=== PATIENT | male | born 1930 ===

== ENCOUNTER 2017-10-12 21:58 | Emergency (ER) | payer MEDICARE ==
[2017-10-12 22:11] VITALS: RESP 18; TEMP 98.1
[2017-10-12] MEDS ORDERED: SODIUM CHLORIDE 0.9% 1,000 ML IV STA (22:17)
[2017-10-12 22:35] LABS: Basophils % (A) 0 %; Eosinophils # (A) 0.1 k/uL (0-0.7); Eosinophils % (A) 1 %; HGB 15.4 gm/dL (13.0-17.5); Lymphocytes # (A) 1.2 k/uL (1.0-4.8); Lymphocytes % (A) 12 %; MCH 28.1 pg (25.0-35.0); MCHC 32.7 g/dL (31.0-37.0); MCV 85.8 fL (80.0-100.0); Monocytes # (A) 0.5 k/uL (0-1.0); Monocytes % (A) 5 %; Neutrophils # (A) 8.3 k/uL (1.3-7.7); Neutrophils % (A) 81 %; Platelet Count 166 k/uL (150-450); RBC 5.49 m/uL (4.30-5.90); WBC 10.1 k/uL (3.8-10.6)
--- NOTE | 2017-10-12 22:35 | ED ---
General Adult HPI - General Chief complaint: Weakness Stated complaint: hypertension,syncope Time Seen by Provider: 10/12/17 22:17 Source: patient, EMS, RN notes reviewed, old records reviewed Mode of arrival: EMS Limitations: language barrier - History of Present Illness Initial comments: This is an 87-year-old male to the ER for evaluation. He presents today for evaluation regarding not feeling well, weakness near fall. Patient denies injury from fall but had difficulty walking after his episode of weakness. Patient is unable to communicate history obtained through was able to translate. 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 She states right now he has no complaints and currently before Sandra no complaints no pain no chest pain or shortness of breath no abdominal pain no headache he has been acting feeling fine lately - Related Data Home Medications Medication Instructions Recorded Confirmed Doxazosin Mesylate [Cardura] 4 mg PO HS 03/16/14 10/12/17 Enalapril [Vasotec] 20 mg PO DAILY 03/16/14 10/12/17 Magnesium Oxide [Mag-Ox] 250 mg PO DAILY 10/12/17 10/12/17 Multivit-Min/FA/Lycopen/Lutein 1 tab PO DAILY 10/12/17 10/12/17 [Centrum Silver Men Tablet] Pantoprazole Sodium [Protonix] 40 mg PO HS 10/12/17 10/12/17 Allergies Allergy/AdvReac Type Severity Reaction Status Date / Time No Known Allergies Allergy Verified 10/12/17 22:16 Review of Systems ROS Statement: Those systems with pertinent positive or pertinent negative responses have been documented in the HPI. ROS Other: All systems not noted in ROS Statement are negative. Past Medical History Past Medical History: Hyperlipidemia, Hypertension, Prostate Disorder History of Any Multi-Drug Resistant Organisms: None Reported Past Surgical History: Hernia Repair Additional Past Surgical History / Comment(s): Hemorrhoid removal, plate/ screws left wrist. Past Psychological History: No Psychological Hx Reported Smoking Status: Former smoker Past Alcohol Use History: None Reported Past Drug Use History: None Reported General Exam Limitations: language barrier General appearance: alert, in no apparent distress Head exam: Present: atraumatic, normocephalic, normal inspection Eye exam: Present: normal appearance, PERRL, EOMI. Absent: scleral icterus, conjunctival injection, periorbital swelling ENT exam: Present: normal exam, mucous membranes moist Neck exam: Present: normal inspection. Absent: tenderness, meningismus, lymphadenopathy Respiratory exam: Present: normal lung sounds bilaterally. Absent: respiratory distress, wheezes, rales, rhonchi, stridor Cardiovascular Exam: Present: regular rate, normal rhythm, normal heart sounds. Absent: systolic murmur, diastolic murmur, rubs, gallop, clicks GI/Abdominal exam: Present: soft, normal bowel sounds. Absent: distended, tenderness, guarding, rebound, rigid Extremities exam: Present: normal inspection, full ROM, normal capillary refill. Absent: tenderness, pedal edema, joint swelling, calf tenderness Back exam: Present: normal inspection Neurological exam: Present: alert, oriented X3, CN II-XII intact Psychiatric exam: Present: normal affect, normal mood Skin exam: Present: warm, dry, intact, normal color. Absent: rash Course Vital Signs 10/12/17 10/12/17 10/13/17 22:02 23:13 00:25 Temperature 98.1 F Pulse Rate 81 79 76 Respiratory 18 18 18 Rate Blood Pressure 183/107 172/97 186/92 O2 Sat by Pulse 97 98 98 Oximetry - Reevaluation(s) Reevaluation #1: 10/13/17 00:51 Patient not asking a requiring any treatment, no has no pain Reevaluation #2: 10/13/17 02:51 Patient does have significant fecal bolus, patient given enema, patient able to manually disimpact himself, EKG Findings - EKG Comments: EKG Findings:: EKG shows sinus rhythm rate of 88, pO2 40, QRS 76, QTc 423 Medical Decision Making - Medical Decision Making 80 formality ER for evaluation regarding weakness, patient have significant constipation, will be treated appropriately. Patient having adequate bowel movement strong able to ambulate. Patient can be discharged - Lab Data Result diagrams: 10/12/17 22:16 10/12/17 22:16 Lab Results 10/12/17 10/12/17 10/12/17 Range/Units 22:16 22:16 22:16 WBC 10.1 (3.8-10.6) k/uL RBC 5.49 (4.30-5.90) m/uL Hgb 15.4 (13.0-17.5) gm/dL Hct 47.0 (39.0-53.0) % MCV 85.8 (80.0-100.0) fL MCH 28.1 (25.0-35.0) pg MCHC 32.7 (31.0-37.0) g/dL RDW 14.0 (11.5-15.5) % Plt Count 166 (150-450) k/uL Neutrophils % 81 % Lymphocytes % 12 % Monocytes % 5 % Eosinophils % 1 % Basophils % 0 % Neutrophils # 8.3 H (1.3-7.7) k/uL Lymphocytes # 1.2 (1.0-4.8) k/uL Monocytes # 0.5 (0-1.0) k/uL Eosinophils # 0.1 (0-0.7) k/uL Basophils # 0.0 (0-0.2) k/uL PT (9.0-12.0) sec INR (<1.2) APTT (22.0-30.0) sec Sodium 140 (137-145) mmol/L Potassium 3.9 (3.5-5.1) mmol/L Chloride 106 (98-107) mmol/L Carbon Dioxide 26 (22-30) mmol/L Anion Gap 8 mmol/L BUN 16 (9-20) mg/dL Creatinine 0.90 (0.66-1.25) mg/dL Est GFR (CKD-EPI)AfAm >90 (>60 ml/min/1.73 sqM) Est GFR (CKD-EPI)NonAf 78 (>60 ml/min/1.73 sqM) Glucose 107 H (74-99) mg/dL Calcium 10.0 (8.4-10.2) mg/dL Phosphorus 2.5 (2.5-4.5) mg/dL Magnesium 2.2 (1.6-2.3) mg/dL Total Bilirubin 0.7 (0.2-1.3) mg/dL AST 21 (17-59) U/L ALT 25 (21-72) U/L Alkaline Phosphatase 86 (38-126) U/L Total Creatine Kinase 130 (55-170) U/L CK-MB (CK-2) 2.0 (0.0-2.4) ng/mL CK-MB (CK-2) Rel Index 1.5 Troponin I <0.012 (0.000-0.034) ng/mL Total Protein 6.7 (6.3-8.2) g/dL Albumin 3.9 (3.5-5.0) g/dL TSH 0.508 (0.465-4.680) mIU/L Urine Color Urine Appearance (Clear) Urine pH (5.0-8.0) Ur Specific [place] (1.001-1.035) Urine Protein (Negative) Urine Glucose (UA) (Negative) Urine Ketones (Negative) Urine Blood (Negative) Urine Nitrite (Negative) Urine Bilirubin (Negative) Urine Urobilinogen (<2.0) mg/dL Ur Leukocyte Esterase (Negative) Urine RBC (0-5) /hpf Urine WBC (0-5) /hpf Amorphous Sediment (None) /hpf Urine Bacteria (None) /hpf Urine Mucus (None) /hpf 10/12/17 10/12/17 Range/Units 22:16 23:06 WBC (3.8-10.6) k/uL RBC (4.30-5.90) m/uL Hgb (13.0-17.5) gm/dL Hct (39.0-53.0) % MCV (80.0-100.0) fL MCH (25.0-35.0) pg MCHC (31.0-37.0) g/dL RDW (11.5-15.5) % Plt Count (150-450) k/uL Neutrophils % % Lymphocytes % % Monocytes % % Eosinophils % % Basophils % % Neutrophils # (1.3-7.7) k/uL Lymphocytes # (1.0-4.8) k/uL Monocytes # (0-1.0) k/uL Eosinophils # (0-0.7) k/uL Basophils # (0-0.2) k/uL PT 10.6 (9.0-12.0) sec INR 1.1 (<1.2) APTT 24.6 (22.0-30.0) sec Sodium (137-145) mmol/L Potassium (3.5-5.1) mmol/L Chloride (98-107) mmol/L Carbon Dioxide (22-30) mmol/L Anion Gap mmol/L BUN (9-20) mg/dL Creatinine (0.66-1.25) mg/dL Est GFR (CKD-EPI)AfAm (>60 ml/min/1.73 sqM) Est GFR (CKD-EPI)NonAf (>60 ml/min/1.73 sqM) Glucose (74-99) mg/dL Calcium (8.4-10.2) mg/dL Phosphorus (2.5-4.5) mg/dL Magnesium (1.6-2.3) mg/dL Total Bilirubin (0.2-1.3) mg/dL AST (17-59) U/L ALT (21-72) U/L Alkaline Phosphatase (38-126) U/L Total Creatine Kinase (55-170) U/L CK-MB (CK-2) (0.0-2.4) ng/mL CK-MB (CK-2) Rel Index Troponin I (0.000-0.034) ng/mL Total Protein (6.3-8.2) g/dL Albumin (3.5-5.0) g/dL TSH (0.465-4.680) mIU/L Urine Color Yellow Urine Appearance Cloudy (Clear) Urine pH 7.0 (5.0-8.0) Ur Specific [place] 1.013 (1.001-1.035) Urine Protein Trace H (Negative) Urine Glucose (UA) Negative (Negative) Urine Ketones Negative (Negative) Urine Blood Negative (Negative) Urine Nitrite Negative (Negative) Urine Bilirubin Negative (Negative) Urine Urobilinogen <2.0 (<2.0) mg/dL Ur Leukocyte Esterase Negative (Negative) Urine RBC 1 (0-5) /hpf Urine WBC <1 (0-5) /hpf Amorphous Sediment Rare H (None) /hpf Urine Bacteria Rare H (None) /hpf Urine Mucus Occasional H (None) /hpf - Radiology Data Radiology results: report reviewed (CT brain C-spine CT chest and pelvis positive for fecal impaction), image reviewed Disposition Clinical Impression: Constipation, Weakness Disposition: HOME SELF-CARE Condition: Good Instructions: Constipation (ED) Referrals: Rodrigo Foley MD [Primary Care Provider] - 1-2 days
[2017-10-12 22:38] LABS: INR 1.1 (<1.2); Partial Thromboplastin Time 24.6 sec (22.0-30.0); Prothrombin Time 10.6 sec (9.0-12.0)
--- NOTE | 2017-10-12 22:45 | XR ---
EXAMINATION TYPE: XR chest 2V DATE OF EXAM: 10/12/2017 COMPARISON: 03/16/2014 HISTORY: Weakness TECHNIQUE: Frontal and lateral views of the chest are obtained. FINDINGS: There is no heart failure nor confluent pneumonic infiltrate. Thoracic aorta is atheroscle rotic and tortuous. 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 There is slight blunting of the costop hrenic angles. Bony thorax appears intact. 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 No heart fa ilure. Mild pleural reaction at the posterior lung bases is slightly increased.
[2017-10-12 22:56] LABS: ALT 25 U/L (21-72); AST 21 U/L (17-59); Albumin 3.9 g/dL (3.5-5.0); Alkaline Phosphatase 86 U/L (38-126); Anion Gap 8 mmol/L; Blood Urea Nitrogen 16 mg/dL (9-20); Carbon Dioxide 26 mmol/L (22-30); Chloride 106 mmol/L (98-107); Glucose 107 mg/dL (74-99); Magnesium 2.2 mg/dL (1.6-2.3); Phosphorus 2.5 mg/dL (2.5-4.5); Potassium 3.9 mmol/L (3.5-5.1); Sodium 140 mmol/L (137-145); Total Bilirubin 0.7 mg/dL (0.2-1.3); Total Protein 6.7 g/dL (6.3-8.2)
[2017-10-12 23:04] LABS: Creatine Kinase 130 U/L (55-170)
[2017-10-12 23:15] LABS: Troponin I <0.012 ng/mL (0.000-0.034)
[2017-10-12 23:21] LABS: Amorphous Sediment,Urine Rare /hpf; Appearance,Urine Cloudy (Clear); Bacteria,Urine Rare /hpf; Bilirubin,Urine Negative (Negative); Blood,Urine Negative (Negative); Color,Urine Yellow; Glucose,Urine (UA) Negative (Negative); Ketones,Urine Negative (Negative); Leukocyte Esterase,Urine Negative (Negative); Mucus,Urine Occasional /hpf; Nitrite,Urine Negative (Negative); Protein,Urine Trace (Negative); RBC,Urine 1 /hpf (0-5); Specific Gravity,Urine 1.013 (1.001-1.035); Urobilinogen,Urine <2.0 mg/dL (<2.0); WBC,Urine <1 /hpf (0-5)
[2017-10-12] MEDS ORDERED: RX INFO: IV CONTRAST WAS GIVEN 1 EACH MISC MISCELLANE PRN (23:41)
--- NOTE | 2017-10-13 00:53 | CT ---
EXAMINATION TYPE: CT brain ayo wo con DATE OF EXAM: 10/13/2017 COMPARISON: 06/15/2010 HISTORY: Fall headache. Neck pain. CT DLP: 1487.60 mGycm Automated exposure control for dose reduction was used. TECHNIQUE: CT scan of the head and cervical spine are performed without contrast. FINDINGS: There is cerebral cortical atrophy. There is no mass effect nor midline shift. There is n o sign of intracranial hemorrhage. The calvarium appears intact. There is hypodensity in the perivent ricular white matter. There is a 3 mm retrolisthesis at C5-6. There is spurring of endplates at C5-6 C6-7. There is multile ольга hypertrophic cervical facet arthropathy. The skull base is intact. There is bony spinal stenosis at C5-6 C6-7 due to the spur formation and facet arthropathy. Spinal canal measures 4 to 5 mm. IMPRESSION: Cerebral atrophy and chronic small vessel ischemia that has progressed compared to old exam. Spondylotic changes in the cervical spine with moderately severe spinal stenosis at C5-6. No fracture . Spinal stenosis is worse than old exam.
--- NOTE | 2017-10-13 00:57 | CT ---
EXAMINATION TYPE: CT angio chest DATE OF EXAM: 10/13/2017 12:29 AM COMPARISON: NONE HISTORY: Fall, Weakness, R/O PE chest pain CT DLP: 991.50 mGycm Automated exposure control for dose reduction was used. CONTRAST: CTA scan of the thorax is performed with IV Contrast, patient injected with 100 mL of Omnipaque 350, pulmonary embolism protocol. There are 3-D post processed images.. FINDINGS: There is some pleural infiltrate and atelectasis at the right posterior lung base. There is small rig ht pleural effusion. Heart is enlarged. There is mild aneurysm of the thoracic aorta measures up to 4 cm. There is no evidence of dissection. There are large central pulmonary arteries. I see no filling defects in the pulmonary arteries. There is no mediastinal adenopathy. There are no hilar masses. There is no evidence of a pulmonary mass. T here are spondylotic changes in the thoracic spine. Heart is enlarged. There is no pericardial effusi on. IMPRESSION: NO EVIDENCE OF PULMONARY EMBOLISM. SMALL RIGHT PLEURAL EFFUSION AND MILD INFILTRATE AND ATELECTASIS A T THE RIGHT LUNG BASE. SMALL LEFT PLEURAL EFFUSION. MILD ANEURYSM OF THE THORACIC AORTA. CHANGES OF P ULMONARY HYPERTENSION WITH LARGE PULMONARY ARTERIES.
--- NOTE | 2017-10-13 01:08 | CT ---
EXAMINATION TYPE: CT abdomen pelvis w con DATE OF EXAM: 10/13/2017 COMPARISON: NONE HISTORY: Fall, Weakness CT DLP: 991.50 mGycm Automated exposure control for dose reduction was used. TECHNIQUE: Helical acquisition of images was performed from the lung bases through the pelvis. CONTRAST: Performed without Oral Contrast and with IV Contrast, patient injected with 100 mL of Omnipaque 350. FINDINGS: There are small bilateral pleural effusions. There is mild infiltrate and atelectasis at the posterio r lung bases. Heart is enlarged. Liver and spleen appear normal. Bile ducts are not dilated. There is no evidence of a pancreatic mass . Gallbladder appears normal. There is no adrenal mass. There is a 2 cm cyst on the upper pole left kidney. There is no hydronephro sis. Ureters are not dilated. There is normal contrast opacification of the kidneys. There is no retr operitoneal adenopathy. There is retained fecal material throughout the colon. There is enlarged rect um with fecal material. This measures 7.2 cm in diameter. Bladder distends smoothly. There is no asci gali. Appendix appears normal. IMPRESSION: MILD INFILTRATES AT THE LUNG BASES WITH BILATERAL PLEURAL EFFUSIONS. CARDIOMEGALY. ATHEROSCLEROTIC VA SCULAR DISEASE. RECTAL FECAL IMPACTION. NO EVIDENCE OF RENAL MASS OR OBSTRUCTION. NORMAL APPENDIX. 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 THERE IS MILD RETROLISTHESIS AT L3-4. THERE IS A MILD SPONDYLOLISTHESIS AT L4-5. NO COMPRESSION FRACTURE.
[2017-10-13] MEDS ORDERED: SENNOSIDES-DOCUSATE SODIUM 1 EACH TAB PO STA (01:11)
[2017-10-13] MEDS ORDERED: MAGNESIUM CITRATE 296 ML BOTTLE PO ONE (01:11)
[2017-10-13 04:05] VITALS: BP 152/82; PULSE 92
== END 2017-10-13 03:59 | disposition home or self-care (01) ==
LOC: EC 21:58
DX: R53.1 Weakness (principal); K59.00 Constipation, unspecified; R55 Syncope and collapse; I10 Essential (primary) hypertension; Z87.891 Personal history of nicotine dependence
CPT/HCPCS: 36415; 93005; 80053; 82550; 82553; 83735; 84100; 84443; 84484; 85025; 85610; 85730; 81001; 87086; 71046; 72125; 70450; 71275; 74177; 99285; 96360; 96361; Q9967

== ENCOUNTER 2017-10-14 10:00 | Inpatient (IN) | payer MEDICARE ==
[2017-10-14] MEDS ORDERED: SODIUM CHLORIDE 0.9% 500 ML IV ONE (10:40)
--- NOTE | 2017-10-14 10:55 | ED ---
General Adult HPI - General Chief complaint: Abdominal Pain Stated complaint: Altered Mental Status Time Seen by Provider: 10/14/17 10:02 Source: EMS, RN notes reviewed Mode of arrival: EMS Limitations: physical limitation - History of Present Illness Initial comments: 86-year-old male presenting with abdominal pain and altered mental status. Patient does have baseline dementia, according to his he has had left- sided weakness and worsening confusion. He did sleep with his abdomen over a couch according to EMS. He was complaining of abdominal pain. He is unable to quantify the exact reason why 0 but does state he is having abdominal pain. Patient denies headache or vision changes. Denies any other pain complaints. Although I'm uncertain how reliable this history is, given the patient's mental status. According to his the symptoms in his left arm and left leg have been present since this morning 4am. she does not believe these were present yesterday evening although she is uncertain of the exact time course. - Related Data Home Medications Medication Instructions Recorded Confirmed Doxazosin Mesylate [Cardura] 4 mg PO HS 03/16/14 10/14/17 Enalapril [Vasotec] 20 mg PO DAILY 03/16/14 10/14/17 Magnesium Oxide [Mag-Ox] 250 mg PO DAILY 10/12/17 10/14/17 Multivit-Min/FA/Lycopen/Lutein 1 tab PO DAILY 10/12/17 10/14/17 [Centrum Silver Men Tablet] Pantoprazole Sodium [Protonix] 40 mg PO HS 10/12/17 10/14/17 Allergies Allergy/AdvReac Type Severity Reaction Status Date / Time No Known Allergies Allergy Verified 10/14/17 10:23 Review of Systems ROS Statement: Those systems with pertinent positive or pertinent negative responses have been documented in the HPI. ROS Other: All systems not noted in ROS Statement are negative. Past Medical History Past Medical History: Hyperlipidemia, Hypertension, Prostate Disorder History of Any Multi-Drug Resistant Organisms: None Reported Past Surgical History: Hernia Repair Additional Past Surgical History / Comment(s): Hemorrhoid removal, plate/ screws left wrist. Past Psychological History: No Psychological Hx Reported Smoking Status: Former smoker Past Alcohol Use History: None Reported Past Drug Use History: None Reported General Exam Limitations: physical limitation General appearance: alert, in no apparent distress Head exam: Present: atraumatic, normocephalic Eye exam: Present: normal appearance, PERRL ENT exam: Present: mucous membranes dry Neck exam: Present: normal inspection. Absent: tenderness, meningismus Respiratory exam: Present: rhonchi. Absent: respiratory distress Cardiovascular Exam: Present: normal rhythm, tachycardia GI/Abdominal exam: Present: soft, distended, tenderness (Generalized tenderness) Extremities exam: Present: normal inspection, normal capillary refill Neurological exam: Present: motor sensory deficit (Left upper extremity and left lower extremity flaccid paralysis). Absent: oriented X3 Skin exam: Present: warm, dry. Absent: cyanosis, diaphoretic Course Vital Signs 10/14/17 10/14/17 10/14/17 10:01 11:46 14:00 Temperature 98.0 F 97.5 F L Pulse Rate 103 H 82 88 Respiratory 24 16 16 Rate Blood Pressure 122/78 159/86 167/89 O2 Sat by Pulse 94 L 98 97 Oximetry EKG Findings - EKG Comments: EKG Findings:: EKG shows sinus rhythm with first-degree AV block, low voltage QRS, no ST segment elevation, rate of 96, W[place] interval 230, QS duration 68, QTC 409 Medical Decision Making - Medical Decision Making 86-year-old male presenting by EMS after being found down at home. According to patient's he had a fall earlier in the evening. She noted left-sided weakness at approximately 4 AM that the patient woke with. Weakness has been localized to the left upper and lower extremity. Patient is outside the TPA window at the time of arrival. CT head is obtained, negative for acute intracranial pathology. Case is discussed with the patient's primary care physician or does know him well, recommended CT angiography although patient is outside of TPA window, there may be endovascular intervention available. CT angiography is obtained, this is negative for occlusion. Patient has been given aspirin in the emergency department. He will be admitted for further evaluation and treatment. - Lab Data Result diagrams: 10/14/17 10:15 10/14/17 10:15 Lab Results 10/14/17 10/14/17 10/14/17 Range/Units 10:15 10:15 10:15 WBC 12.2 H (3.8-10.6) k/uL RBC 5.52 (4.30-5.90) m/uL Hgb 15.8 (13.0-17.5) gm/dL Hct 47.6 (39.0-53.0) % MCV 86.3 (80.0-100.0) fL MCH 28.5 (25.0-35.0) pg MCHC 33.1 (31.0-37.0) g/dL RDW 14.2 (11.5-15.5) % Plt Count 148 L (150-450) k/uL Neutrophils % 91 % Lymphocytes % 4 % Monocytes % 5 % Eosinophils % 0 % Basophils % 0 % Neutrophils # 11.1 H (1.3-7.7) k/uL Lymphocytes # 0.4 L (1.0-4.8) k/uL Monocytes # 0.6 (0-1.0) k/uL Eosinophils # 0.0 (0-0.7) k/uL Basophils # 0.0 (0-0.2) k/uL PT 10.8 (9.0-12.0) sec INR 1.1 (<1.2) APTT 24.8 (22.0-30.0) sec Sodium 140 (137-145) mmol/L Potassium 5.0 (3.5-5.1) mmol/L Chloride 106 (98-107) mmol/L Carbon Dioxide 23 (22-30) mmol/L Anion Gap 11 mmol/L BUN 20 (9-20) mg/dL Creatinine 0.94 (0.66-1.25) mg/dL Est GFR (CKD-EPI)AfAm 86 (>60 ml/min/1.73 sqM) Est GFR (CKD-EPI)NonAf 75 (>60 ml/min/1.73 sqM) Glucose 130 H (74-99) mg/dL Plasma Lactic Acid Jose Raul (0.7-2.0) mmol/L Calcium 9.9 (8.4-10.2) mg/dL Total Bilirubin 1.2 (0.2-1.3) mg/dL AST 64 H (17-59) U/L ALT 40 (21-72) U/L Alkaline Phosphatase 79 (38-126) U/L Troponin I (0.000-0.034) ng/mL Total Protein 6.9 (6.3-8.2) g/dL Albumin 4.0 (3.5-5.0) g/dL Amylase 71 (30-110) U/L Lipase 37 (23-300) U/L Urine Color Urine Appearance (Clear) Urine pH (5.0-8.0) Ur Specific [place] (1.001-1.035) Urine Protein (Negative) Urine Glucose (UA) (Negative) Urine Ketones (Negative) Urine Blood (Negative) Urine Nitrite (Negative) Urine Bilirubin (Negative) Urine Urobilinogen (<2.0) mg/dL Ur Leukocyte Esterase (Negative) Urine RBC (0-5) /hpf Urine WBC (0-5) /hpf Ur Renal Epithelial Cell (0) /hpf Urine Bacteria (None) /hpf Hyaline Casts (0-2) /lpf Urine Mucus (None) /hpf Urine Sperm (None) /hpf 10/14/17 10/14/17 10/14/17 Range/Units 10:15 10:50 11:00 WBC (3.8-10.6) k/uL RBC (4.30-5.90) m/uL Hgb (13.0-17.5) gm/dL Hct (39.0-53.0) % MCV (80.0-100.0) fL MCH (25.0-35.0) pg MCHC (31.0-37.0) g/dL RDW (11.5-15.5) % Plt Count (150-450) k/uL Neutrophils % % Lymphocytes % % Monocytes % % Eosinophils % % Basophils % % Neutrophils # (1.3-7.7) k/uL Lymphocytes # (1.0-4.8) k/uL Monocytes # (0-1.0) k/uL Eosinophils # (0-0.7) k/uL Basophils # (0-0.2) k/uL PT (9.0-12.0) sec INR (<1.2) APTT (22.0-30.0) sec Sodium (137-145) mmol/L Potassium (3.5-5.1) mmol/L Chloride (98-107) mmol/L Carbon Dioxide (22-30) mmol/L Anion Gap mmol/L BUN (9-20) mg/dL Creatinine (0.66-1.25) mg/dL Est GFR (CKD-EPI)AfAm (>60 ml/min/1.73 sqM) Est GFR (CKD-EPI)NonAf (>60 ml/min/1.73 sqM) Glucose (74-99) mg/dL Plasma Lactic Acid Jose Raul 1.8 (0.7-2.0) mmol/L Calcium (8.4-10.2) mg/dL Total Bilirubin (0.2-1.3) mg/dL AST (17-59) U/L ALT (21-72) U/L Alkaline Phosphatase (38-126) U/L Troponin I 0.018 (0.000-0.034) ng/mL Total Protein (6.3-8.2) g/dL Albumin (3.5-5.0) g/dL Amylase (30-110) U/L Lipase (23-300) U/L Urine Color [place] Urine Appearance Clear (Clear) Urine pH 6.0 (5.0-8.0) Ur Specific [place] 1.036 H (1.001-1.035) Urine Protein 2+ H (Negative) Urine Glucose (UA) Trace H (Negative) Urine Ketones 1+ H (Negative) Urine Blood Moderate H (Negative) Urine Nitrite Negative (Negative) Urine Bilirubin 1+ H (Negative) Urine Urobilinogen 2.0 (<2.0) mg/dL Ur Leukocyte Esterase Negative (Negative) Urine RBC 2 (0-5) /hpf Urine WBC 1 (0-5) /hpf Ur Renal Epithelial Cell <1 (0) /hpf Urine Bacteria Rare H (None) /hpf Hyaline Casts 4 H (0-2) /lpf Urine Mucus Few H (None) /hpf Urine Sperm Rare (None) /hpf Critical Care Time Critical Care Time: Yes Total Critical Care Time: 35 Disposition Clinical Impression: CVA (cerebral vascular accident) Disposition: ADMITTED IP TO THIS [facility] Condition: Stable Referrals: Rodrigo Foley MD [Primary Care Provider] - 1-2 days Decision to Admit Reason: Admit from EC Decision Date: 10/14/17 Decision Time: 12:30
[2017-10-14 10:58] LABS: Basophils % (A) 0 %; Eosinophils % (A) 0 %; HCT 47.6 % (39.0-53.0); HGB 15.8 gm/dL (13.0-17.5); Lymphocytes # (A) 0.4 k/uL (1.0-4.8); Lymphocytes % (A) 4 %; MCH 28.5 pg (25.0-35.0); MCHC 33.1 g/dL (31.0-37.0); MCV 86.3 fL (80.0-100.0); Mean Platelet Volume 7.7; Monocytes # (A) 0.6 k/uL (0-1.0); Monocytes % (A) 5 %; Neutrophils # (A) 11.1 k/uL (1.3-7.7); Neutrophils % (A) 91 %; Platelet Count 148 k/uL (150-450); RBC 5.52 m/uL (4.30-5.90); RDW 14.2 % (11.5-15.5); WBC 12.2 k/uL (3.8-10.6)
[2017-10-14 11:22] LABS: Partial Thromboplastin Time 24.8 sec (22.0-30.0)
[2017-10-14 11:28] LABS: Calcium 9.9 mg/dL (8.4-10.2); Total Bilirubin 1.2 mg/dL (0.2-1.3)
[2017-10-14 11:31] LABS: Total Protein 6.9 g/dL (6.3-8.2)
[2017-10-14 11:32] LABS: INR 1.1 (<1.2); Prothrombin Time 10.8 sec (9.0-12.0)
[2017-10-14 11:34] LABS: Appearance,Urine Clear (Clear); Bacteria,Urine Rare /hpf; Bilirubin,Urine 1+ (Negative); Blood,Urine Moderate (Negative); Color,Urine Orange; Glucose,Urine (UA) Trace (Negative); Hyaline Casts,Urine 4 /lpf (0-2); Ketones,Urine 1+ (Negative); Leukocyte Esterase,Urine Negative (Negative); Mucus,Urine Few /hpf; Nitrite,Urine Negative (Negative); Protein,Urine 2+ (Negative); RBC,Urine 2 /hpf (0-5); Renal Epithelial Cells,Urine <1 /hpf (0); Specific Gravity,Urine 1.036 (1.001-1.035); Sperm,Urine Rare /hpf; WBC,Urine 1 /hpf (0-5)
--- NOTE | 2017-10-14 11:37 | CT ---
EXAMINATION TYPE: CT brain ayo acevedo DATE OF EXAM: 10/14/2017 COMPARISON: 10/12/2017 HISTORY: recent fall, not responding, not using Lt side CT DLP: [address] of the brain was performed. The ventricles, basal cisterns and sulci overlying the cerebral convexities demonstrate moderate enla rgement. There is no evidence for intracranial hemorrhage or sulcal effacement. There is decreased attenuatio n about the periventricular white matter and deep white matter of both cerebral hemispheres, compatib le with chronic small vessel ischemia. No mass effects are seen. If symptoms persist consider MRI. Osseous calvarium is intact. IMPRESSION: 1. Age related atrophic and chronic small vessel ischemic change without acute intracranial process seen at this time. CT Cervical Spine: Unenhanced CT of the cervical spine was performed with bone and soft tissue window settings submitted . Coronal and sagittal reconstruction is obtained. There is normal alignment and prevertebral soft tissues. No evidence for acute cervical fracture . Scattered degenerative disc disease and spondylosis. Biapical scarring. IMPRESSION: 1. No evidence for acute fracture or subluxation of the cervical spine.
--- NOTE | 2017-10-14 11:50 | CT ---
EXAMINATION TYPE: CT abdomen pelvis wo con DATE OF EXAM: 10/14/2017 COMPARISON: 10/13/2010 HISTORY: constipation CT DLP: 911 mGycm Examination of the solid and hollow viscera is limited given the lack of contrast. FINDINGS: LUNG BASES: No evidence for nodule. No evidence for infiltrate. Trace pleural effusions noted. Mild c ompressive atelectasis at the lung bases. Cardiomegaly. LIVER/GB: Vicarious excretion of contrast within the gallbladder from recent CT examination. The gall bladder is unremarkable. No space-occupying hepatic lesion. PANCREAS: No pancreatic mass identified. No inflammatory process seen. SPLEEN: No evidence for splenomegaly. No intrasplenic lesions seen. ADRENALS: No adrenal nodules identified. No evidence for thickening. KIDNEYS: No evidence for solid renal mass. Hypoattenuating lesion left kidney likely reflects a cyst. No nephrolithiasis. No hydronephrosis. BOWEL: Appendix has a normal appearance. No evidence of bowel obstruction. No inflammatory process. N o evidence for pneumoperitoneum. Lymph nodes: No evidence for adenopathy greater than 1 cm. Abdominal aorta: Atheromatous changes seen. No evidence for aneurysm. Genital organs: No significant abnormality. Other: No significant abnormality. IMPRESSION: 1. No acute intra-abdominal or intrapelvic process identified. Overall stable examination relative to prior study. Fecal impaction is improved.
--- NOTE | 2017-10-14 12:26 | XR ---
EXAMINATION TYPE: XR chest 1V portable DATE OF EXAM: 10/14/2017 COMPARISON: 10/12/2017 HISTORY: Shortness of breath TECHNIQUE: Frontal and lateral views of the chest are obtained. FINDINGS: Scattered senescent parenchymal changes noted. Hyperinflation compatible with COPD. No evidence for infiltrate. No evidence for atelectasis. Heart size is stable. Mediastinal structures are stable and grossly unremarkable. No evidence for hilar prominence. Degenerative changes dorsal spine. IMPRESSION: 1. No evidence for acute pulmonary disease.
[2017-10-14] MEDS ORDERED: ASPIRIN 325 MG TAB PO STA (12:43)
[2017-10-14] MEDS ORDERED: RX INFO: IV CONTRAST WAS GIVEN 1 EACH MISC MISCELLANE PRN (14:01)
--- NOTE | 2017-10-14 15:11 | CT ---
EXAMINATION TYPE: CT angio head neck DATE OF EXAM: 10/14/2017 COMPARISON: NONE HISTORY: altered mental status CT DLP: 469 mGycm CONTRAST: Performed with IV Contrast, patient injected with 65 mL of Omnipaque 350. Combination Contrast CTA cervical carotids and [place] CTA cervical carotids with 3-D recons truction Contrast CTA of the cervical carotids was performed 3-D reconstruction imaging obtained at a separate workstation. Right carotid system: Mild plaque is seen of the right common carotid artery. There is mild plaque a lso noted at the carotid bulb and proximal ICA. No significant diameter reduction. ECA is patent. Right vertebral artery appears unremarkable. Left carotid system: Mild plaque is seen of the left common carotid artery. There is mild plaque als o noted at the carotid bulb and proximal ICA. No significant diameter reduction. ECA is patent. Lef t vertebral artery appears unremarkable. IMPRESSION: 1. No significant diameter reduction to account for the patient's symptoms. CTA [place] with 3-D reconstruction Contrast CTA of the [place] was performed 3-D reconstruction imaging obtained at a separate workstation. Vertebrobasilar system as well as intracranial portions of the internal carotid arteries and their [place] tributaries are patent. I do not see evidence for sizable aneurysm or vascular malformation. Pl ease note MRI provides greater sensitivity and specificity. Visualized brain appears grossly unremar kable. IMPRESSION: 1. No siginificant abnormality.
[2017-10-14 20:43] VITALS: BMI 22.9
[2017-10-14] MEDS: HEPARIN SODIUM,PORCINE 5,000 UNIT/ML 1 ML VIAL SQ SCH (21:25)
[2017-10-14] MEDS: DOXAZOSIN 4 MG TAB PO SCH (21:26)
[2017-10-14] MEDS: SODIUM CHLORIDE 0.9% 1,000 ML IV SCH (21:26)
[2017-10-15] MEDS: HEPARIN SODIUM,PORCINE 5,000 UNIT/ML 1 ML VIAL SQ SCH ×4 (00:29→22:59)
[2017-10-15 03:56] LABS: Cholesterol 159 mg/dL (<200); HDL Cholesterol 60 mg/dL (40-60); LDL Cholesterol,Calculated 88 mg/dL (0-99); Triglycerides 57 mg/dL (<150)
[2017-10-15] MEDS: SODIUM CHLORIDE 0.9% 1,000 ML IV SCH ×3 (08:18→21:15)
[2017-10-15] MEDS ORDERED: PANTOPRAZOLE 40 MG/10 ML VIAL IVP SCH (09:00)
--- NOTE | 2017-10-15 10:06 | P.CONS ---
History of Present Illness - Chief Complaint Gait disturbance - History of Present Illness I had the op to see patient for inpatient rehab consultation with regard to gait disturbance. He was admitted to [facility] October 14 acute onset left-sided weakness. Workup included CT of abdomen and pelvis which demonstrates improving fecal impaction. Chest x-ray negative. Angio-Seal CT negative. C- spine CT negative. Head CT with age-related atrophy only. PT, OT, OPTICAL LABORATORY MANAGER prescribed. Cardiac echo pending. Previous functional history as elicited from , as patient was getting cardiac echo: 86-year-old right-handed [place] male who is lives in one form with . Retired. does cooking, laundry, driving. Patient independent with sitdown shower. Cruising technique around the house and generally standard cane outside. May require roller walker, after eating. Dr. Foley is regular doctor. Family history of cancer in father and sisters. Review of Systems Review of systems: ENT: Denies sneezes or discharge. Eyes: Denies discharge or photophobia. Cardiac: Denies chest pain or palpitation. Pulmonary: Denies cough or shortness of breath. Gastrointestinal: Denies nausea, emesis, constipation, diarrhea. Genitourinary: Denies discharge or frequency. Musculoskeletal: Denies muscle or bone aches. Neurologic: Left-sided weakness and numbness. Endocrine: Denies shakes or sweats. Oncology: Denies cancers. Dermatologic: Denies rash, itching, pruritus. ALLERGY/immunology: Denies sneezes, rashes. Past Medical History Past Medical History: Hyperlipidemia, Hypertension, Prostate Disorder History of Any Multi-Drug Resistant Organisms: None Reported Past Surgical History: Hernia Repair Additional Past Surgical History / Comment(s): Hemorrhoid removal, plate/ screws left wrist. Past Anesthesia/Blood Transfusion Reactions: No Reported Reaction Past Psychological History: No Psychological Hx Reported Smoking Status: Former smoker Past Alcohol Use History: None Reported Past Drug Use History: None Reported - Past Family History Mother History Unknown: Yes Medications and Allergies Home Medications Medication Instructions Recorded Confirmed Type Doxazosin Mesylate [Cardura] 4 mg PO HS 03/16/14 10/14/17 History Enalapril [Vasotec] 20 mg PO DAILY 03/16/14 10/14/17 History Magnesium Oxide [Mag-Ox] 250 mg PO DAILY 10/12/17 10/14/17 History Multivit-Min/FA/Lycopen/Lutein 1 tab PO DAILY 10/12/17 10/14/17 History [Centrum Silver Men Tablet] Pantoprazole Sodium [Protonix] 40 mg PO HS 10/12/17 10/14/17 History Allergies Allergy/AdvReac Type Severity Reaction Status Date / Time No Known Allergies Allergy Verified 10/14/17 10:23 Physical Exam Vitals: Vital Signs Temp Pulse Pulse Resp BP BP Pulse Ox 10/15/17 08:00 97.7 F 77 16 179/90 97 10/15/17 04:00 97.3 F L 95 18 173/90 99 10/15/17 00:00 97.8 F 85 16 159/83 98 10/14/17 20:00 98.1 F 101 H 18 159/93 98 10/14/17 18:44 98 18 176/80 98 10/14/17 17:44 74 18 189/87 97 10/14/17 16:44 74 18 172/81 98 10/14/17 15:49 73 16 187/88 94 L 10/14/17 15:44 72 18 187/88 98 10/14/17 14:00 88 16 167/89 97 10/14/17 11:46 97.5 F L 82 16 159/86 98 Intake and Output 10/14/17 10/15/17 10/15/17 22:59 06:59 14:59 Intake Total 800 Balance 800 Intake: IV 800 Sodium Chloride 0.9% 1, 800 000 ml @ 100 mls/hr IV . Q10H [facility] Rx#:[id number] Other: Voiding Method Diaper Diaper Incontinent Incontinent # Voids 2 Weight 72.575 kg Skin: Mildly atrophic, intact. General: Medium build and comfortable appearance. Head: Normocephalic, atraumatic. Eyes: Symmetric. Pupils equal round. Ears: Symmetric. Hearing within normal limits. Mouth: Clear. Neck: Supple. Carotid without bruit. Cardiac: Regular rate and rhythm. Lungs: Clear anteriorly and posteriorly. Abdomen: Soft active nontender. Extremities: Normal tone. Neurological: Mental status: Alert, cooperative, pleasant. Cranial nerves: Symmetric facial tone and trapezius. Motor: Normal strength and isolation right arm. Right leg at best antigravity. Left arm in flexion synergy poor and left leg in extension synergy poor. Sensation: Intact throughout. DTRs: Symmetric and equal throughout. Mobility: Requires assistance for bed mobility. Results CBC & Chem 7: 10/14/17 10:15 10/14/17 10:15 Labs: Abnormal Lab Results - Last 24 Hours (Table) 10/14/17 10/14/17 10/14/17 Range/Units 10:15 10:15 11:00 WBC 12.2 H (3.8-10.6) k/uL Plt Count 148 L (150-450) k/uL Neutrophils # 11.1 H (1.3-7.7) k/uL Lymphocytes # 0.4 L (1.0-4.8) k/uL Glucose 130 H (74-99) mg/dL AST 64 H (17-59) U/L Ur Specific [place] 1.036 H (1.001-1.035) Urine Protein 2+ H (Negative) Urine Glucose (UA) Trace H (Negative) Urine Ketones 1+ H (Negative) Urine Blood Moderate H (Negative) Urine Bilirubin 1+ H (Negative) Urine Bacteria Rare H (None) /hpf Hyaline Casts 4 H (0-2) /lpf Urine Mucus Few H (None) /hpf Chest x-ray: report reviewed (Negative.) CT scan - abdomen: report reviewed (Abdomen and pelvis negative.) CT Scan - head: report reviewed (Age-related atrophy. C-spine negative. Angio CT negative.) Assessment and Plan (1) CVA (cerebral vascular accident) Current Visit: Yes Status: Acute Code(s): I63.9 - CEREBRAL INFARCTION, UNSPECIFIED SNOMED Code(s): 897431843 Plan: Impression: 1. Gait disturbance. 2. 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 3. Constipation. 4. Hypertension. 5. Dyslipidemia. 6. Prostate disorder. Comments and plan: At this time PT, OT, OPTICAL LABORATORY MANAGER prescribed. Patient also awaiting regular hospital bed. I will follow closely with yourself. Discussed possible inpatient rehab with patient and .
--- NOTE | 2017-10-15 12:02 | ECHOF ---
Referral Reason:cva MEASUREMENTS -------- HEIGHT: 177.8 cm WEIGHT: 72.6 kg BP: 166/88 RVIDd: 3.1 cm (< 3.3) IVSd: 1.0 cm (0.6 - 1.1) LVIDd: 4.2 cm (3.9 - 5.3) LVPWd: 1.0 cm (0.6 - 1.1) IVSs: 1.3 cm LVIDs: 2.5 cm LVPWs: 1.3 cm LAESV Index (A-L): 19.68 ml/m Ao Diam: 4.5 cm (2.0 - 3.7) AV Cusp: 2.2 cm (1.5 - 2.6) LA Diam: 2.9 cm (2.7 - 3.8) MV E Dion: 0.61 m/s MV DecT: 303 ms MV A Dion: 1.08 m/s MV E/A Ratio: 0.56 RAP: 5.00 mmHg RVSP: 15.12 mmHg FINDINGS -------- Sinus rhythm. This was a technically difficult study with suboptimal views. The left ventricular size is normal. Left ventricular wall thickness is normal. Overall left vent ricular systolic function is normal with, an EF between 55 - 60 %. The RV was not well visualized. Normal LA size by volume 22+/-6 ml/m2. The right atrium was not well visualized. 3ml of Lumason was utilized for enhancement of images. Aortic valve is trileaflet and is mildly thickened. Trace to mild aortic regurgitation. There is no evidence of aortic stenosis. The mitral valve leaflets are mildly thickened. There is trace to mild mitral regurgitation. Trace tricuspid regurgitation present. Right ventricular systolic pressure is normal at < 35 mmHg. There is no evidence of pulmonary hypertension. The pulmonic valve was not well visualized. The aortic root is dilated measuring 3.8cm. Normal inferior vena cava with normal inspiratory collapse consistent with estimated right atrial pre ssure of 5 mmHg. There is no pericardial effusion. CONCLUSIONS -------- 1. Sinus rhythm. 2. This was a technically difficult study with suboptimal views. 3. The left ventricular size is normal. 4. Left ventricular wall thickness is normal. 5. Overall left ventricular systolic function is normal with, an EF between 55 - 60 %. 6. The RV was not well visualized. 7. Normal LA size by volume 22+/-6 ml/m2. 8. The right atrium was not well visualized. 9. 3ml of Lumason was utilized for enhancement of images. 10. Aortic valve is trileaflet and is mildly thickened. 11. Trace to mild aortic regurgitation. 12. The mitral valve leaflets are mildly thickened. 13. There is trace to mild mitral regurgitation. 14. Trace tricuspid regurgitation present. 15. Right ventricular systolic pressure is normal at < 35 mmHg. 16. There is no evidence of pulmonary hypertension. 17. The pulmonic valve was not well visualized. 18. The aortic root is dilated measuring 3.8cm. 19. There is no pericardial effusion. MAIL HANDLER EQUIPMENT OPERATOR: Yonny Og RDCS
[2017-10-15] MEDS: ASPIRIN 325 MG TAB PO SCH (12:50)
--- NOTE | 2017-10-15 19:05 | HP ---
HISTORY AND PHYSICAL ATTENDING PHYSICIAN: Dr. Marcus Foley. CHIEF COMPLAINT: Left-sided weakness. HISTORY OF PRESENT ILLNESS: This 86-year-old gentleman was admitted to the hospital with weakness of the left side. The patient spouse said he had been up at about 1:00 in the night. At that time, the patient seemed to be okay. At 4:00 in the morning, the patient fell and the could not get him up. The patient was at the edge of a couch. The patient appeared to be weak on the left side; however, the patient's was not sure if this was relating to how he was lying. She called me in the morning around 10:00 to see what to do. The patient was referred to the emergency room in view of the weakness of the left side. The patient had actually fallen and had been seen in the emergency room about 2 days prior to that. CT scan had been done. The patient then had no clear infarct. The patient presents to the emergency room with this left-sided weakness, the weakness in the left arm and left leg. He seems to have more weakness in the left lower leg than the arm. At the time of my exam, the patient is awake, alert. He actually is eating his dinner. However, he has clear definite flaccidity of the left lower leg and some weakness of the left upper extremity. The patient denies any headaches, any facial weakness, any difficulty swallowing, any visual disturbances. The patient is on aspirin at home. The patient had been seen a few days ago because of frequency of urination. At that time, the urinalysis unremarkable. A culture was sent. Pending that, the patient was started on Cipro. The patient's Cipro was discontinued with the culture results coming back. The patient also had Cardura which had been increased to 4 mg b.i.d.; however, I talked to the yesterday. That was the day prior to admission and I told to go back on the Cardura 4 mg daily. Apparently, the patient was significantly constipated when seen in the emergency room. When I had seen him, the said that he was having some loose stools. Apparently it seems like the patient's stools were loose because of significant high constipation. After treatment in the emergency room, he had good bowel movements. The patient's urinary flow was improved. The patient has not mentioned about, denies any headaches. The patient in the ER did have CTA of the brain which did not show any significant changes. PAST MEDICAL HISTORY: Significant for hypertension for the past about 38 years. He has some nodules in his thyroid gland. His colonic diverticulosis is without complications and history of hyperlipidemia. No history of any lung disease, liver disease, kidney disease, ulcers, TB, hepatitis. No history of any rheumatic fever, myocardial infarction, CVA. Does have dementia. PAST SURGICAL HISTORY: Significant for perianal abscess surgery, [id number] and then hemorrhoid surgeries. He had a chest tube on the left side for hemopneumothorax following a fall and injury. He has had a previous left wrist ORIF. PERSONAL HISTORY: Had an occasional cigarette for about 6 years, then quit about 70 years ago. Alcohol: None. VACCINATIONS: Patient is up to date. ALLERGIES: None known. MEDICATIONS: Have included: 1. Vasotec 20 mg daily. 2. Cardura 4 mg daily. 3. Lipitor 10 mg daily. 4. Aspirin 81 mg daily. 5. He also takes B12. 6. Multivitamin. 7. Fish oil. SOCIAL HISTORY: Patient is , lives with spouse. The spouse is having difficulty taking care of him at home lately. FAMILY MEDICAL HISTORY: Father at age of 47. He had carcinoma of the lung. Mother at the age of 92. She had hypertension, CKD. A sister, 86, with a history of dementia, colon cancer and diabetes mellitus. A sister at 70, history of salivary gland cancer. A sister, 76, with a history of CA of the colon, hypertension. The patient has a daughter, 55, with hypertension. A son, 52, in adequate health. REVIEW OF SYSTEMS: NEURO: Denies any headaches, dizziness. No double vision, blurred vision. No symptoms of syncope or seizures. PSYCH: Mild dementia, cooperative. CARDIAC: Denies chest pain, angina, palpitation. RESPIRATORY: No shortness of breath, cough, hemoptysis. GI: No nausea, vomiting, abdominal pain, diarrhea. : No symptoms of dysuria, hematuria. Does have frequency and incontinence. EXTREMITIES: Denies pain, edema. CONSTITUTIONAL: No fever, chills. SKIN: No rash. PHYSICAL EXAMINATION: Pleasant gentleman in no distress. VITAL SIGNS: At the time of my evaluation in the emergency room, patient is afebrile, pulse 73, respirations 16, blood pressure 187/88, pulse ox of 94% on room air. HEENT: Normocephalic. NECK: No JVD. Pupils are reactive. Nostrils are clear. Oral cavity is moist. Pharyngeal movements are normal. Tongue central. Ears reveal no drainage. The patient has decreased hearing. Neck reveals no JVD, no carotid bruits and no thyromegaly. Chest is clear to auscultation, percussion. CARDIAC: Normal S1, S2 with no gallops. Systolic murmur 2/6 left sternal border. Regular rhythm. Abdomen is soft. No palpable masses. Bowel sounds normal. No organomegaly. No abdominal bruits. Extremities reveal trace edema. Skin reveals some pruritic orosco, generalized. Neurologically, awake, alert, oriented to place and person. Moves right side normally. Left side: The patient has power of 3/5 on the left upper extremity, power 1/5 of the lower extremity. Plantars equivocal. Right side upgoing. Left side, the patient has no facial asymmetry. LABORATORY ASSESSMENT: White count 12.2, hemoglobin 15.8. Electrolytes are normal. Glucose was 130. Lactic acid normal. AST 64. Cholesterol 159. Urine had 2+ protein, negative nitrite. CT scan reveals no significant strokes. ASSESSMENT: 1. 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 2. History of hypertension. 3. Recent fall. 4. Mild dementia. 5. Hyperlipidemia on medical therapy. PLAN: The patient at present is admitted to the hospital. The patient was seen in the emergency room after the evaluation by the ER physician on 10/14/2017. The patient's condition is discussed with the patient's spouse. Prognosis remains guarded. Carotid evaluation has been done. The patient will have an echocardiogram done. The patient will be continued on aspirin. Consult rehab. Prognosis remains guarded. MMODL / IJN: [id number] /
--- NOTE | 2017-10-15 20:56 | PN ---
PROGRESS NOTE DATE OF SERVICE: 10/15/2017. CHIEF COMPLAINT: Re-evaluation. HISTORY OF PRESENT ILLNESS: An 86-year-old gentleman who was admitted to the hospital because of weakness of the left side. The patient has evidence of a completed stroke. The patient has no other associated symptoms of speech or visual changes. Cranial nerves appear intact. Possible slight weakness of the left facial. The patient otherwise is doing well. He is alert, oriented to place, person, moves right side well. Left side is hemiplegic. He has more power to the upper extremity than the left lower extremity. The patient denies any headaches. REVIEW OF SYSTEMS: NEURO: No headaches, dizziness. PSYCH: No anxiety. CARDIAC: Denies chest pain, angina, palpitations. RESPIRATORY: Denies shortness of breath, cough. GI: No nausea, vomiting, abdominal pain, diarrhea. : No symptoms of dysuria, hematuria. Has incontinence. EXTREMITIES: No pain. CONSTITUTIONAL: No fever, chills. PHYSICAL EXAMINATION: Pleasant gentleman in no distress. Vital signs reveal temperature 97.7, pulse 77, respirations 16, blood pressure 179/90, pulse ox 97% on 2L. HEENT: Normocephalic. NECK: No JVD. No carotid bruits. CHEST: Clear to auscultation. CARDIAC: Normal S1, S2 with no gallops, murmurs. Abdomen is soft. No palpable masses. Bowel sounds normal. No organomegaly. No abdominal bruits. Extremities reveal no edema. Neurologically awake, alert, oriented to place, person. Moves right side very well. Left-side lower extremity power 1/5, upper extremity power 3/5. LABORATORY ASSESSMENT: None new. ASSESSMENT: 1. Completed right hemispheric cerebrovascular accident. 2. History of hypertension. 3. Hyperlipidemia on medical therapy. 4. Mild dementia. 5. Urinary incontinence. PLAN: The patient at present is stable. Continue present medical regimen. Patient's condition discussed with the patient, was discussed with the spouse yesterday. Will ask Dr. Medina to see the patient for possible rehab. MMNAVAL / BEVERLYN: [id number] /
[2017-10-15] MEDS: DOXAZOSIN 4 MG TAB PO SCH (21:14)
[2017-10-16] MEDS: PANTOPRAZOLE 40 MG TABLET PO SCH (06:37)
[2017-10-16 06:46] LABS: Anion Gap 5 mmol/L; Blood Urea Nitrogen 15 mg/dL (9-20); Calcium 8.7 mg/dL (8.4-10.2); Carbon Dioxide 25 mmol/L (22-30); Chloride 107 mmol/L (98-107); Glucose 91 mg/dL (74-99); Potassium 3.7 mmol/L (3.5-5.1); Sodium 137 mmol/L (137-145)
[2017-10-16] MEDS: ASPIRIN 325 MG TAB PO SCH (08:57)
[2017-10-16] MEDS: HEPARIN SODIUM,PORCINE 5,000 UNIT/ML 1 ML VIAL SQ SCH ×2 (08:57→16:14)
[2017-10-16] MEDS: SODIUM CHLORIDE 0.9% 1,000 ML IV SCH ×2 (08:59→16:14)
[2017-10-16] MEDS ORDERED: ATORVASTATIN 10 MG TAB PO SCH (21:00)
[2017-10-16] MEDS: DOXAZOSIN 4 MG TAB PO SCH (21:41)
--- NOTE | 2017-10-16 23:24 | PN ---
PROGRESS NOTE CHIEF COMPLAINT: Re-evaluation. HISTORY OF PRESENT ILLNESS: This is an 86-year-old gentleman admitted to the hospital with evidence of right hemispheric stroke with left hemiplegia. The patient has actually remained stable with no progression. He denies any headaches or dizziness. No chest pain. No arrhythmias. The patient is able to talk and feed. He does have a power of 3/5 in his upper extremity and 1/5 in the lower extremity. REVIEW OF SYSTEMS: NEURO: Denies any headaches, dizziness. PSYCH: No anxiety. CARDIAC: Denies chest pain, angina. RESPIRATORY: Denies shortness of breath, cough. GI: No reported nausea, vomiting, abdominal pain, diarrhea. No difficulty swallowing. : No symptoms of dysuria, hematuria. EXTREMITIES: No pain. CONSTITUTIONAL: No fever or chills. PHYSICAL EXAMINATION: Elderly gentleman, at present in no distress. Vital signs reveal temperature 97.2, pulse 91, respirations 18, blood pressure 148/85, pulse ox 94% on room air. HEENT: Normocephalic. NECK: No JVD. CHEST: Clear to auscultation. CARDIAC: Normal S1, S2 with no gallop. Systolic murmur 2/6, left sternal border. ABDOMEN: Soft. Bowel sounds active. Extremities reveal trace edema. Neurologically awake, alert, oriented, well-coordinated movements. Oriented to person and place. Moves right side well. Left side hemiplegia. LABORATORY ASSESSMENT: Electrolytes which are normal. BUN 15, creatinine 0.64. ASSESSMENT: 1. Completed right hemispheric cerebrovascular accident. 2. Hypertension. 3. Mild cognitive impairment. PLAN: The patient at present is stable. Continue present medical regimen. Patient's condition was discussed with the patient. We have asked Dr. Medina to see the patient, who will discuss with him if he sees there is potential of inpatient rehab. Otherwise, patient will be transferred to a nursing facility. Prognosis remains guarded. MMODL / IJN: [id number] /
[2017-10-17] MEDS: HEPARIN SODIUM,PORCINE 5,000 UNIT/ML 1 ML VIAL SQ SCH ×3 (00:15→16:25)
[2017-10-17] MEDS: PANTOPRAZOLE 40 MG TABLET PO SCH (06:23)
[2017-10-17] MEDS ORDERED: LISINOPRIL 20 MG TAB PO SCH (09:00)
[2017-10-17] MEDS: ASPIRIN 325 MG TAB PO SCH (09:16)
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
[2017-10-17 16:38] VITALS: BP 136/89; PULSE 78; RESP 18; TEMP 98.5
== END 2017-10-17 20:43 | DRG 65 ==
LOC: EC 10:00 → 6SEL 15:44
PROVIDERS: ADMIT Internal Medicine; ATTEND Internal Medicine
DX: I63.511 Cerebral infarction due to unspecified occlusion or stenosis of right middle cerebral artery (principal); G81.04 Flaccid hemiplegia affecting left nondominant side; F03.90 Unspecified dementia, unspecified severity, without behavioral disturbance, psychotic disturbance, mood disturbance, and anxiety; R29.715 NIHSS score 15; I10 Essential (primary) hypertension; E78.5 Hyperlipidemia, unspecified; K57.30 Diverticulosis of large intestine without perforation or abscess without bleeding; R26.9 Unspecified abnormalities of gait and mobility; R32 Unspecified urinary incontinence; K59.09 Other constipation; H91.90 Unspecified hearing loss, unspecified ear; Z79.82 Long term (current) use of aspirin; Z79.899 Other long term (current) drug therapy; Z87.891 Personal history of nicotine dependence; Z91.81 History of falling; N42.9 Disorder of prostate, unspecified; Z82.49 Family history of ischemic heart disease and other diseases of the circulatory system
CPT/HCPCS: 36415; 51701; 70450; 70496; 70498; 71045; 72125; 74176; 80048; 80053; 80061; 81001; 82150; 83605; 83690; 84484; 85025; 85610; 85730; 93005; 93306; 96361; 96372; 96374; 99291

== ENCOUNTER 2018-01-08 18:39 | Inpatient (IN) | payer MEDICARE ==
[2018-01-08] MEDS ORDERED: ACETAMINOPHEN TAB 500 MG TAB PO STA (18:54)
[2018-01-08] MEDS ORDERED: PANTOPRAZOLE 40 MG/10 ML VIAL IVP ONE (18:56)
--- NOTE | 2018-01-08 19:09 | ED ---
GI Bleed HPI - General Chief complaint: GI Bleed Stated complaint: GI Bleed Time Seen by Provider: 01/08/18 18:40 Source: EMS Mode of arrival: EMS Limitations: altered mental status - History of Present Illness Initial comments: This is an 87-year-old male with a history of GI bleed, dementia who presents emergency department for anemia. The patient was at a nursing facility and was noted to have a bloody bowel movement today. They checked her hemoglobin was 7.5. His most recent one was 8.2. There are concerns or symptoms emergency department. The patient also has been coughing and was noted to be febrile on arrival. Patient has dementia and thus is not able to contribute to any of the history. The rest of the patient's chart was reviewed and no other significant findings. - Related Data Home Medications Medication Instructions Recorded Confirmed Doxazosin Mesylate [Cardura] 4 mg PO HS 03/16/14 01/08/18 Enalapril [Vasotec] 20 mg PO DAILY 03/16/14 01/08/18 Magnesium Oxide [Mag-Ox] 250 mg PO DAILY 10/12/17 01/08/18 Multivit-Min/FA/Lycopen/Lutein 1 tab PO DAILY 10/12/17 01/08/18 [Centrum Silver Men Tablet] Bisacodyl [Dulcolax] 10 mg RECTAL DAILY PRN 01/08/18 01/08/18 Lactose-Reduced Food [Ensure Plus] 1 can PO TID 01/08/18 01/08/18 Mag Hydrox/Al Hydrox/Simeth 30 ml PO TID 01/08/18 01/08/18 [Maalox] Magnesium Hydroxide [Milk of 2,400 mg PO DAILY PRN 01/08/18 01/08/18 Magnesia] Methylphenidate HCl [Ritalin] 10 mg PO QAM 01/08/18 01/08/18 Mirtazapine [Remeron] 15 mg PO HS 01/08/18 01/08/18 Na Phos,M-B/Na Phos,Di-Ba [Fleet 133 ml RECTAL ONCE PRN 01/08/18 01/08/18 Adult] Pantoprazole [Protonix] 40 mg PO HS 01/08/18 01/08/18 Tamsulosin HCl [Flomax] 0.4 mg PO HS 01/08/18 01/08/18 amLODIPine [Norvasc] 5 mg PO BID 01/08/18 01/08/18 Previous Rx's Medication Instructions Recorded Aspirin 325 mg PO DAILY tab 10/17/17 Atorvastatin [Lipitor] 10 mg PO HS tab 10/17/17 Allergies Allergy/AdvReac Type Severity Reaction Status Date / Time No Known Allergies Allergy Verified 01/08/18 19:28 Review of Systems ROS Statement: Those systems with pertinent positive or pertinent negative responses have been documented in the HPI. ROS Other: All systems not noted in ROS Statement are negative. Past Medical History Past Medical History: CVA/TIA, Dementia, GI Bleed, Hyperlipidemia, Hypertension , Prostate Disorder History of Any Multi-Drug Resistant Organisms: None Reported Past Surgical History: Hernia Repair Additional Past Surgical History / Comment(s): Hemorrhoid removal, plate/ screws left wrist. Past Anesthesia/Blood Transfusion Reactions: No Reported Reaction Past Psychological History: No Psychological Hx Reported Smoking Status: Former smoker Past Alcohol Use History: None Reported Past Drug Use History: None Reported - Past Family History Mother History Unknown: Yes General Exam - General Exam Comments Initial Comments: Constitutional: Awake alert Appears comfortable Head: Normocephalic atraumatic Eyes: no conjunctival injection No scleral icterus EOMI, mild conjunctival pallor Neck: No JVD Supple Heart: Tachycardia normal S1-S2 no murmurs Lungs: Clear to auscultation bilaterally No wheezing No rales, productive cough Abdomen: Soft nondistended nontender, guaiac positive stool Extremities: Non edematous DP pulses intact Radial pulses intact Neuro: Awake and alert however unable to contribute to the conversation No focal neurologic deficits Psych: Appropriate mood and affect Limitations: altered mental status Course Vital Signs 01/08/18 01/08/18 01/08/18 18:43 20:00 20:15 Temperature 100.7 F H 100 F H 100 F H Pulse Rate 106 H 96 87 Respiratory 15 20 16 Rate Blood Pressure 119/58 125/58 137/69 O2 Sat by Pulse 97 100 Oximetry 01/08/18 20:33 Temperature 98.5 F Pulse Rate 100 Respiratory 16 Rate Blood Pressure 102/55 O2 Sat by Pulse 100 Oximetry Medical Decision Making - Medical Decision Making This is an 87-year-old male presents emergency department for anemia and GI bleed. He was found to be Hemoccult positive. Hemoglobin 7.2. He will be transfused one unit of blood. His troponin was elevated and I suspect this to be from his anemia. No EKG changes of ischemia. Will not start heparin due to GI bleed. Dr. Foley was spoken to on the phone and knows the patient well who accepts the admission. The patient of note did have a fever on arrival however no source was found. Cultures are pending. No antibiotic this time. - Lab Data Result diagrams: 01/08/18 18:50 01/08/18 18:50 Lab Results 01/08/18 01/08/18 01/08/18 Range/Units 18:40 18:50 18:50 WBC 6.3 (3.8-10.6) k/uL RBC 2.58 L (4.30-5.90) m/uL Hgb 7.4 L (13.0-17.5) gm/dL Hct 22.3 L (39.0-53.0) % MCV 86.4 (80.0-100.0) fL MCH 28.7 (25.0-35.0) pg MCHC 33.2 (31.0-37.0) g/dL RDW 15.0 (11.5-15.5) % Plt Count 218 (150-450) k/uL Neutrophils % 72 % Lymphocytes % 17 % Monocytes % 9 % Eosinophils % 1 % Basophils % 0 % Neutrophils # 4.5 (1.3-7.7) k/uL Lymphocytes # 1.1 (1.0-4.8) k/uL Monocytes # 0.6 (0-1.0) k/uL Eosinophils # 0.0 (0-0.7) k/uL Basophils # 0.0 (0-0.2) k/uL PT (9.0-12.0) sec INR (<1.2) APTT (22.0-30.0) sec Sodium (137-145) mmol/L Potassium (3.5-5.1) mmol/L Chloride (98-107) mmol/L Carbon Dioxide (22-30) mmol/L Anion Gap mmol/L BUN (9-20) mg/dL Creatinine (0.66-1.25) mg/dL Est GFR (CKD-EPI)AfAm (>60 ml/min/1.73 sqM) Est GFR (CKD-EPI)NonAf (>60 ml/min/1.73 sqM) Glucose (74-99) mg/dL Plasma Lactic Acid Jose Raul (0.7-2.0) mmol/L Calcium (8.4-10.2) mg/dL Total Bilirubin (0.2-1.3) mg/dL AST (17-59) U/L ALT (21-72) U/L Alkaline Phosphatase (38-126) U/L Troponin I (0.000-0.034) ng/mL Total Protein (6.3-8.2) g/dL Albumin (3.5-5.0) g/dL Urine Color Light Yellow Urine Appearance Clear (Clear) Urine pH 6.5 (5.0-8.0) Ur Specific [place] 1.015 (1.001-1.035) Urine Protein Negative (Negative) Urine Glucose (UA) Negative (Negative) Urine Ketones Negative (Negative) Urine Blood Negative (Negative) Urine Nitrite Negative (Negative) Urine Bilirubin Negative (Negative) Urine Urobilinogen <2.0 (<2.0) mg/dL Ur Leukocyte Esterase Negative (Negative) Stool Occult Blood (Negative) Blood Type B Positive Blood Type Recheck No Antibody Screen NEGATIVE Crossmatch See Detail Spec Expiration Date 01/11/2018 - 234901/08/18 01/08/18 01/08/18 Range/Units 18:50 18:50 18:50 WBC (3.8-10.6) k/uL RBC (4.30-5.90) m/uL Hgb (13.0-17.5) gm/dL Hct (39.0-53.0) % MCV (80.0-100.0) fL MCH (25.0-35.0) pg MCHC (31.0-37.0) g/dL RDW (11.5-15.5) % Plt Count (150-450) k/uL Neutrophils % % Lymphocytes % % Monocytes % % Eosinophils % % Basophils % % Neutrophils # (1.3-7.7) k/uL Lymphocytes # (1.0-4.8) k/uL Monocytes # (0-1.0) k/uL Eosinophils # (0-0.7) k/uL Basophils # (0-0.2) k/uL PT 10.2 (9.0-12.0) sec INR 1.0 (<1.2) APTT 22.2 (22.0-30.0) sec Sodium 145 (137-145) mmol/L Potassium 4.1 (3.5-5.1) mmol/L Chloride 112 H (98-107) mmol/L Carbon Dioxide 24 (22-30) mmol/L Anion Gap 9 mmol/L BUN 53 H (9-20) mg/dL Creatinine 0.80 (0.66-1.25) mg/dL Est GFR (CKD-EPI)AfAm >90 (>60 ml/min/1.73 sqM) Est GFR (CKD-EPI)NonAf 82 (>60 ml/min/1.73 sqM) Glucose 106 H (74-99) mg/dL Plasma Lactic Acid Jose Raul 1.1 (0.7-2.0) mmol/L Calcium 8.8 (8.4-10.2) mg/dL Total Bilirubin <0.1 L (0.2-1.3) mg/dL AST 35 (17-59) U/L ALT 53 (21-72) U/L Alkaline Phosphatase 50 (38-126) U/L Troponin I (0.000-0.034) ng/mL Total Protein 4.6 L (6.3-8.2) g/dL Albumin 2.5 L (3.5-5.0) g/dL Urine Color Urine Appearance (Clear) Urine pH (5.0-8.0) Ur Specific [place] (1.001-1.035) Urine Protein (Negative) Urine Glucose (UA) (Negative) Urine Ketones (Negative) Urine Blood (Negative) Urine Nitrite (Negative) Urine Bilirubin (Negative) Urine Urobilinogen (<2.0) mg/dL Ur Leukocyte Esterase (Negative) Stool Occult Blood (Negative) Blood Type Blood Type Recheck Antibody Screen Crossmatch Spec Expiration Date 01/08/18 01/08/18 Range/Units 18:50 18:57 WBC (3.8-10.6) k/uL RBC (4.30-5.90) m/uL Hgb (13.0-17.5) gm/dL Hct (39.0-53.0) % MCV (80.0-100.0) fL MCH (25.0-35.0) pg MCHC (31.0-37.0) g/dL RDW (11.5-15.5) % Plt Count (150-450) k/uL Neutrophils % % Lymphocytes % % Monocytes % % Eosinophils % % Basophils % % Neutrophils # (1.3-7.7) k/uL Lymphocytes # (1.0-4.8) k/uL Monocytes # (0-1.0) k/uL Eosinophils # (0-0.7) k/uL Basophils # (0-0.2) k/uL PT (9.0-12.0) sec INR (<1.2) APTT (22.0-30.0) sec Sodium (137-145) mmol/L Potassium (3.5-5.1) mmol/L Chloride (98-107) mmol/L Carbon Dioxide (22-30) mmol/L Anion Gap mmol/L BUN (9-20) mg/dL Creatinine (0.66-1.25) mg/dL Est GFR (CKD-EPI)AfAm (>60 ml/min/1.73 sqM) Est GFR (CKD-EPI)NonAf (>60 ml/min/1.73 sqM) Glucose (74-99) mg/dL Plasma Lactic Acid Jose Raul (0.7-2.0) mmol/L Calcium (8.4-10.2) mg/dL Total Bilirubin (0.2-1.3) mg/dL AST (17-59) U/L ALT (21-72) U/L Alkaline Phosphatase (38-126) U/L Troponin I 4.920 H* (0.000-0.034) ng/mL Total Protein (6.3-8.2) g/dL Albumin (3.5-5.0) g/dL Urine Color Urine Appearance (Clear) Urine pH (5.0-8.0) Ur Specific [place] (1.001-1.035) Urine Protein (Negative) Urine Glucose (UA) (Negative) Urine Ketones (Negative) Urine Blood (Negative) Urine Nitrite (Negative) Urine Bilirubin (Negative) Urine Urobilinogen (<2.0) mg/dL Ur Leukocyte Esterase (Negative) Stool Occult Blood Positive (Negative) Blood Type Blood Type Recheck Antibody Screen Crossmatch Spec Expiration Date Disposition Clinical Impression: GI bleed, Anemia, Fever Disposition: ADMITTED IP TO THIS HOSP Condition: Stable
[2018-01-08 19:13] LABS: Basophils % (A) 0 %; Eosinophils % (A) 1 %; HCT 22.3 % (39.0-53.0); HGB 7.4 gm/dL (13.0-17.5); Lymphocytes # (A) 1.1 k/uL (1.0-4.8); Lymphocytes % (A) 17 %; MCH 28.7 pg (25.0-35.0); MCHC 33.2 g/dL (31.0-37.0); MCV 86.4 fL (80.0-100.0); Mean Platelet Volume 7.6; Monocytes # (A) 0.6 k/uL (0-1.0); Monocytes % (A) 9 %; Neutrophils # (A) 4.5 k/uL (1.3-7.7); Neutrophils % (A) 72 %; Platelet Count 218 k/uL (150-450); RBC 2.58 m/uL (4.30-5.90); WBC 6.3 k/uL (3.8-10.6)
[2018-01-08] MEDS: SODIUM CHLORIDE 0.9% 1,000 ML IV SCH (19:17)
[2018-01-08] MEDS: SODIUM CHLORIDE 0.9% 500 ML IV SCH ×2 (19:20→23:04)
[2018-01-08 19:27] LABS: ALT 53 U/L (21-72); AST 35 U/L (17-59); Albumin 2.5 g/dL (3.5-5.0); Alkaline Phosphatase 50 U/L (38-126); Anion Gap 9 mmol/L; Blood Urea Nitrogen 53 mg/dL (9-20); Calcium 8.8 mg/dL (8.4-10.2); Carbon Dioxide 24 mmol/L (22-30); Chloride 112 mmol/L (98-107); Glucose 106 mg/dL (74-99); Potassium 4.1 mmol/L (3.5-5.1); Sodium 145 mmol/L (137-145); Total Bilirubin <0.1 mg/dL (0.2-1.3); Total Protein 4.6 g/dL (6.3-8.2)
[2018-01-08 19:33] LABS: Partial Thromboplastin Time 22.2 sec (22.0-30.0); Prothrombin Time 10.2 sec (9.0-12.0)
[2018-01-08 20:03] LABS: Appearance,Urine Clear (Clear); Bilirubin,Urine Negative (Negative); Blood,Urine Negative (Negative); Color,Urine Light Yellow; Glucose,Urine (UA) Negative (Negative); Ketones,Urine Negative (Negative); Leukocyte Esterase,Urine Negative (Negative); Nitrite,Urine Negative (Negative); PH, Urine 6.5 (5.0-8.0); Protein,Urine Negative (Negative); Specific Gravity,Urine 1.015 (1.001-1.035); Urobilinogen,Urine <2.0 mg/dL (<2.0)
[2018-01-08] MEDS ORDERED: NALOXONE 0.4 MG/ML 1 ML VIAL IV PRN (20:56)
[2018-01-08] MEDS ORDERED: MAGNESIUM HYDROXIDE 2,400 MG/10 ML CUP PO PRN (20:58)
[2018-01-08] MEDS ORDERED: BISACODYL 10 MG SUPP RECTAL PRN (20:58)
[2018-01-08] MEDS ORDERED: NA PHOS,M-B/NA PHOS,DI-BA 133 ML ENEMA RECTAL PRN (20:58)
[2018-01-08] MEDS ORDERED: TAMSULOSIN 0.4 MG CAP.ER.24H PO SCH (21:45)
[2018-01-08] MEDS ORDERED: NON-FORMULARY DRUG (Lactose-Reduced Food [Ensure Plus] 1 CAN) PO SCH (22:00)
[2018-01-08] MEDS: amLODIPine 5 MG TAB PO SCH (22:55)
[2018-01-08] MEDS: DOXAZOSIN 4 MG TAB PO SCH (22:55)
[2018-01-08] MEDS: ATORVASTATIN 10 MG TAB PO SCH (22:55)
[2018-01-08] MEDS: MIRTAZAPINE 15 MG TAB PO SCH (22:56)
[2018-01-08] MEDS: MAG HYDROX/AL HYDROX/SIMETH 30 ML CUP PO SCH (22:56)
[2018-01-08] MEDS: PANTOPRAZOLE 40 MG/10 ML VIAL IVP SCH (23:04)
[2018-01-09 00:51] LABS: Basophils % (A) 0 %; Eosinophils # (A) 0.1 k/uL (0-0.7); Eosinophils % (A) 1 %; HGB 7.7 gm/dL (13.0-17.5); Lymphocytes # (A) 1.2 k/uL (1.0-4.8); Lymphocytes % (A) 21 %; MCH 28.3 pg (25.0-35.0); MCHC 32.1 g/dL (31.0-37.0); MCV 88.2 fL (80.0-100.0); Mean Platelet Volume 7.3; Monocytes # (A) 0.6 k/uL (0-1.0); Monocytes % (A) 11 %; Neutrophils # (A) 3.6 k/uL (1.3-7.7); Neutrophils % (A) 64 %; Platelet Count 189 k/uL (150-450); RBC 2.72 m/uL (4.30-5.90); RDW 14.5 % (11.5-15.5); WBC 5.6 k/uL (3.8-10.6)
[2018-01-09 06:50] LABS: Anion Gap 7 mmol/L; Blood Urea Nitrogen 37 mg/dL (9-20); Carbon Dioxide 26 mmol/L (22-30); Chloride 112 mmol/L (98-107); Glucose 94 mg/dL (74-99); Potassium 3.9 mmol/L (3.5-5.1); Sodium 145 mmol/L (137-145)
--- NOTE | 2018-01-09 08:55 | P.CONS ---
History of Present Illness - Reason for Consult Consult date: 01/09/18 GI bleed Requesting physician: Rodrigo Foley - History of Present Illness 87-year-old gentleman past medical history of CVA, colonic diverticulosis, remote peptic ulcer disease, hypertension, dementia admitted with fever T-max 100.7, hematemesis and anemia. Hemoglobin 7.4. MCV 86. Platelet 218. INR 1.0. BUN 53. Creatinine 0.8. Troponin 4.9. Stool occult blood positive. History obtained from medical records chart and assistance from Dr. Foley. Previous hemoglobin October 2017 was between 12.9-15.8. Home medications include full-strength aspirin no NSAIDs or other antiplatelets/anticoagulants medications. Unsure if patient has had a colonoscopy in the past. Review of Systems Obtained from medical records nursing staff Constitutional: Denies fever, chills, sweats, weight gain, or loss. Mild dementia. HEENT: Negative for migraines, blurred vision or loss, earaches, drainage, tinnitus, oral mucosal lesions, dysphagia, or odynophagia. Cardiac: Negative for chest pain, arrhythmias, or palpitation. Respiratory: Negative for shortness of breath, hemoptysis, cough, or sputum production. Gastrointestinal: See HPI for pertinent findings. Genitourinary: Negative for hematuria. Musculoskeletal: Negative for muscle aches, swelling, arthritis, and arthralgias. Neurologic: History of CVA.. Endocrine: Negative for thyroid problems. Skin: Negative for rash or itching. Psychiatric: Negative history for depression and anxiety Past Medical History Past Medical History: CVA/TIA, Dementia, GI Bleed, Hyperlipidemia, Hypertension , Prostate Disorder Additional Past Medical History / Comment(s): CVA/TIA on previous October 2017 admission. History of Any Multi-Drug Resistant Organisms: None Reported Past Surgical History: Hernia Repair Additional Past Surgical History / Comment(s): Hemorrhoid removal, plate/ screws left wrist. Past Anesthesia/Blood Transfusion Reactions: No Reported Reaction Past Psychological History: No Psychological Hx Reported Smoking Status: Former smoker Past Alcohol Use History: None Reported Past Drug Use History: None Reported - Past Family History Mother History Unknown: Yes Medications and Allergies Home Medications Medication Instructions Recorded Confirmed Type Doxazosin Mesylate [Cardura] 4 mg PO HS 03/16/14 01/08/18 History Enalapril [Vasotec] 20 mg PO DAILY 03/16/14 01/08/18 History Magnesium Oxide [Mag-Ox] 250 mg PO DAILY 10/12/17 01/08/18 History Multivit-Min/FA/Lycopen/Lutein 1 tab PO DAILY 10/12/17 01/08/18 History [Centrum Silver Men Tablet] Aspirin 325 mg PO DAILY tab 10/17/17 01/08/18 Rx Atorvastatin [Lipitor] 10 mg PO HS tab 10/17/17 01/08/18 Rx Bisacodyl [Dulcolax] 10 mg RECTAL DAILY PRN 01/08/18 01/08/18 History Lactose-Reduced Food [Ensure Plus] 1 can PO TID 01/08/18 01/08/18 History Mag Hydrox/Al Hydrox/Simeth 30 ml PO TID 01/08/18 01/08/18 History [Maalox] Magnesium Hydroxide [Milk of 2,400 mg PO DAILY PRN 01/08/18 01/08/18 History Magnesia] Methylphenidate HCl [Ritalin] 10 mg PO QAM 01/08/18 01/08/18 History Mirtazapine [Remeron] 15 mg PO HS 01/08/18 01/08/18 History Na Phos,M-B/Na Phos,Di-Ba [Fleet 133 ml RECTAL ONCE PRN 01/08/18 01/08/18 History Adult] Pantoprazole [Protonix] 40 mg PO HS 01/08/18 01/08/18 History Tamsulosin HCl [Flomax] 0.4 mg PO HS 01/08/18 01/08/18 History amLODIPine [Norvasc] 5 mg PO BID 01/08/18 01/08/18 History Allergies Allergy/AdvReac Type Severity Reaction Status Date / Time No Known Allergies Allergy Verified 01/08/18 19:28 Physical Exam Vitals: Vital Signs Temp Pulse Pulse Resp BP BP Pulse Ox 01/09/18 04:00 97.5 F L 93 20 133/69 98 01/09/18 00:00 105 H 20 01/08/18 23:07 97 F L 105 H 20 149/78 98 01/08/18 21:41 97.7 F 98 18 123/67 99 01/08/18 21:03 97.5 F L 96 16 111/59 100 01/08/18 21:00 97.7 F 99 18 116/68 99 01/08/18 20:33 98.5 F 100 16 102/55 100 01/08/18 20:15 100 F H 87 16 137/69 01/08/18 20:00 100 F H 96 20 125/58 100 01/08/18 18:43 100.7 F H 106 H 15 119/58 97 Intake and Output 01/08/18 01/09/18 01/09/18 22:59 06:59 14:59 Intake Total 0 Balance 0 Intake: Blood Product 0 Rc As-1 Unit 0 [id number] Other: # Voids 2 Weight 79.832 kg 51 kg General appearance: The patient is alert, oriented, in no acute distress. HET: Head is normocephalic and atraumatic. Pupils are equal and reactive. Oropharynx is clear without lesions. Neck: Supple without lymphadenopathy. Trachea midline. Heart: S1 S2. Regular rate and rhythm. Lungs: No crackles or wheezes are heard. Abdomen: Soft, nontender, nondistended with bowel sounds. No peritoneal signs. No palpable organomegaly or masses. Extremities: Normal skin color and turgor. No cyanosis, rash, ulceration, clubbing, or edema. Radial and pedal pulses are 2/4 bilaterally. Neurological: No focal deficits. Strength and sensation are grossly intact. Rectal: Not performed secondary to patient's diaper with large bowel movement dark brown. Results CBC & Chem 7: 01/09/18 00:35 01/09/18 06:09 Labs: Abnormal Lab Results - Last 24 Hours (Table) 01/08/18 01/08/18 01/08/18 Range/Units 18:50 18:50 18:50 RBC 2.58 L (4.30-5.90) m/uL Hgb 7.4 L (13.0-17.5) gm/dL Hct 22.3 L (39.0-53.0) % Chloride 112 H (98-107) mmol/L BUN 53 H (9-20) mg/dL Glucose 106 H (74-99) mg/dL Total Bilirubin <0.1 L (0.2-1.3) mg/dL Troponin I (0.000-0.034) ng/mL Total Protein 4.6 L (6.3-8.2) g/dL Albumin 2.5 L (3.5-5.0) g/dL Crossmatch See Detail 01/08/18 01/09/18 01/09/18 Range/Units 18:50 00:35 06:09 RBC 2.72 L (4.30-5.90) m/uL Hgb 7.7 L (13.0-17.5) gm/dL Hct 24.0 L (39.0-53.0) % Chloride 112 H (98-107) mmol/L BUN 37 H (9-20) mg/dL Glucose (74-99) mg/dL Total Bilirubin (0.2-1.3) mg/dL Troponin I 4.920 H* (0.000-0.034) ng/mL Total Protein (6.3-8.2) g/dL Albumin (3.5-5.0) g/dL Crossmatch Microbiology - Last 24 Hours (Table) 01/08/18 18:40 Urine Culture - Preliminary Urine,Catheterized Assessment and Plan (1) GI bleed Narrative/Plan: 87-year-old male admitted with hematemesis possible peptic ulcer disease history of remote peptic ulcer disease. Current Visit: Yes Status: Acute Code(s): K92.2 - GASTROINTESTINAL HEMORRHAGE, UNSPECIFIED SNOMED Code(s): 65654012 (2) Anemia Current Visit: Yes Status: Acute Code(s): D64.9 - ANEMIA, UNSPECIFIED SNOMED Code(s): 250005185 (3) Fever Current Visit: Yes Status: Acute Code(s): R50.9 - FEVER, UNSPECIFIED SNOMED Code(s): 876393860 (4) Elevated troponin Current Visit: Yes Status: Acute Code(s): R74.8 - ABNORMAL LEVELS OF OTHER SERUM ENZYMES SNOMED Code(s): 731685692 (5) Acute blood loss anemia Current Visit: Yes Status: Acute Code(s): D62 - ACUTE POSTHEMORRHAGIC ANEMIA SNOMED Code(s): 943762302 Plan: 1. Case discussed with Dr. Foley he is agreeable with proceeding with EGD evaluation today. CBC monitoring. Protonix 40 mg twice daily. We'll follow with you. The medical office worker has discussed the risks, benefits and alternative therapies for the above-mentioned procedure and for both sedation/analgesia as well as necessary blood product administration, if indicated, as they pertain to this patient. The patient's advocate has indicated understanding and acceptance of the risks and procedures discussed. Thank you for this kind referral and the opportunity to participate in the care of your patient. This consultation was discussed with Dr. Vaughan. The impression and plan of care have been directed as dictated.
[2018-01-09] MEDS ORDERED: METHYLPHENIDATE HCL 10 MG TAB PO SCH (09:00)
[2018-01-09] MEDS: SODIUM CHLORIDE 0.9% 1,000 ML IV SCH ×2 (09:08→15:45)
[2018-01-09] MEDS: PANTOPRAZOLE 40 MG/10 ML VIAL IVP SCH ×2 (09:09→21:27)
--- NOTE | 2018-01-09 09:21 | HP ---
HISTORY AND PHYSICAL CHIEF COMPLAINT: Vomiting blood. HISTORY OF PRESENT ILLNESS: This is an 87-year-old gentleman who was transferred from the nursing facility here. The patient was seen there because of having had an episode of vomited some fresh blood, which was about 60 mL. There was also blood clot in his mouth. There was one episode. None subsequently. No reported melena. Denied any abdominal pain. Patient has had a previous history of peptic ulcer. He is on an aspirin because of recent stroke. The patient also has some associated mild dementia. He has had some improvement in his stroke recovery. The patient otherwise has no reported other issues at the nursing facility. He was noted to have a low-grade temperature with no clear evidence of any infection. PAST MEDICAL HISTORY: Past medical history is significant for as mentioned above, recent history of CVA, that was back in October. He also has had a history of hypertension for over 38 years. Small thyroid gland nodules with no significant change. He has a history of colonic diverticulosis without complication. History of hyperlipidemia. No history of any lung disease. He did have a hemothorax following an injury about 10 years ago. No history of any liver disease, kidney disease, ulcers, TB, hepatitis. No history of any rheumatic fever or myocardial infarction. He does have mild dementia. PAST SURGICAL HISTORY: Significant for perianal abscess surgery, [id number] surgery and hemorrhoidal surgery. He also had a chest tube on the left side for hemopneumothorax following a fall and injury. He has had a previous left wrist ORIF. PERSONAL HISTORY: Had an occasional cigarette for about 6 years, quit for about 70 years now. Alcohol none. VACCINATIONS: Patient has been up to date. ALLERGIES: None known. FAMILY MEDICAL HISTORY: Father at the age of 47, he had carcinoma of the lung. Mother at the age of 92. She had a hypertension, chronic kidney disease. A sister 86 had history of dementia, colon cancer and diabetes mellitus. Sister at 70, history of salivary gland cancer. Sister 76 with history of carcinoma of the colon, hypertension. The patient has a daughter 56 with history of hypertension, a son 52 in adequate health. SOCIAL HISTORY: Patient at present. He is to live at home, however, he has been in a long-term for the past 3 months. MEDICATIONS: Medications include: 1. Norvasc 5 mg b.i.d. 2. Ritalin 10 mg every morning. 3. Vasotec 20 mg daily. 4. Flomax 0.4 mg at bedtime. 5. Protonix 40 mg daily. 6. Remeron 15 mg at bedtime. 7. Magnesium oxide 250 mg daily. 8. Lipitor 10 mg daily. 9. Multivitamin daily. 10.Doxazosin 4 mg daily. 11.Aspirin 325 mg daily. REVIEW OF SYSTEMS: NEURO: Denies any headaches, dizziness, double vision or blurred vision. No symptoms of syncope, seizures. PSYCH: Cooperative, mild dementia. CARDIAC: Denies chest pain, angina, palpitation. RESPIRATORY: No shortness of breath, cough, hemoptysis. GI: Episode of hematemesis. Denies any abdominal pain, diarrhea, constipation. Stool is dark, but not melenic appearing. : Does have incontinence. EXTREMITIES: No pain. CONSTITUTIONAL: Low grade fever today. Otherwise, no other of symptoms. PHYSICAL EXAMINATION: Pleasant gentleman in no distress. Vitals revealed temperature 100.7, pulse 106, respirations 15, blood pressure 119/58, pulse ox 97% on room air. HEENT: Normocephalic. Neck decreased range of motion. Oral cavity is dry. Nostrils are clear. The pupils are reactive. Neck reveals no JVD, carotid bruits or thyromegaly. Chest examination is clear to auscultation and percussion. CARDIAC: Normal S1, S2 with no gallops. Tachycardic. Systolic murmur 2/6 left sternal border. ABDOMEN: Soft. Bowel sounds present. No masses. Rectal is not done. Patient did have some feces at the time of evaluation, which was dark but not melenic appearing. Stool is guaiac positive. Extremities reveal no edema. NEUROLOGICAL: Awake, alert, recognizes who I am. He is able to talk but is slow to respond. Left side normal range of motion, right side decreased range of motion. LABORATORY ASSESSMENT: Laboratory assessment revealed a CBC which showed hemoglobin of 7.4, white count 6.3, normal MCV, platelet count . PT PTT is normal. Electrolytes reveals chloride of 112, BUN 53, creatinine 0.8. Glucose 106. Negative troponin. Urinalysis unremarkable. Stool positive for occult. ASSESSMENT: 1. Hematemesis. 2. Upper gastrointestinal bleed with acute blood loss anemia. 3. History of recent cerebrovascular accident. 4. Dehydration with elevated BUN. 5. History of hypertension. 6. History of mild dementia. PLAN: The patient at present is clinically stable. The patient is admitted to the hospital. Hydrate. Gastroenterology consult for upper endoscopy. Prognosis remains guarded. The patient does have a previous history of ulcers. He will be off aspirin. We may consider using Plavix instead. MMNAVAL / IJN: [id number] /
[2018-01-09 13:50] VITALS: BMI 20.2
[2018-01-09] MEDS ORDERED: PROPOFOL 10 MG/ML 20 ML VIAL IV ONE (14:09)
[2018-01-09] MEDS ORDERED: IV FLUID CONTINUATION 1,000 ML IV ONE ×2 (14:10)
--- NOTE | 2018-01-09 14:25 | P.PCN ---
Date of Procedure: 01/09/18 Procedure(s) Performed: BRIEF HISTORY: Patient is a 87-year-old, pleasant, male, admitted to the hospital after having 2 episodes of hematemesis/coffee-ground emesis. Since being in the hospital he did not have any episodes of bleeding. Initial hemoglobin was 7.5 g/dL and remained stable today. His and scheduled for an upper endoscopy to evaluate for source of upper GI bleed. PROCEDURE PERFORMED: Esophagogastroduodenoscopy with biopsy. PREOPERATIVE DIAGNOSIS: Acute upper GI bleed. IV sedation per anesthesia. PROCEDURE: After informed consent was obtained, the patient was brought into the endoscopy unit. IV sedation was administered by Anesthesia under continuous monitoring. Initially the Olympus GIF-140 video endoscope was inserted into the mouth. Esophagus intubated without any difficulty. It was gradually advanced into the stomach and duodenum and carefully examined. The bulb and the second part of the duodenum appeared normal. The scope at this time was withdrawn to the stomach, adequately insufflated with air, and upon careful examination, mucosa of the antrum, body, cardia and the fundus appeared normal. Small gastric polyps identified. The scope was then withdrawn into the esophagus. The GE junction was located at 40 cm from the incisors. Small hiatal hernia noted. There were linear ulcerations in the distal esophagus extending from 30- 40 cm from the incisors with no active bleeding. Biopsies were done from the distal esophagus to evaluate for Munoz's esophagus. The rest of the esophagus appeared normal and the patient tolerated the procedure well. IMPRESSION: 1. Severe reflux esophagitis with erosions and ulcerations involving the distal esophagus from 30-40 cm consistent with grade 4 reflux esophagitis. 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 Small hiatal hernia and gastric polyps. RECOMMENDATIONS: The findings of this examination were discussed with the patient as his family. He was advised to follow with the biopsy results. He will be continued with Protonix 40 mg twice daily and follow antireflux measures. Diet will be advanced as tolerated.
[2018-01-09] MEDS: amLODIPine 5 MG TAB PO SCH ×2 (15:42→21:26)
[2018-01-09] MEDS: MAGNESIUM OXIDE 400 MG TAB PO SCH (15:43)
[2018-01-09] MEDS: LISINOPRIL 20 MG TAB PO SCH (15:43)
[2018-01-09] MEDS: MULTIVITAMINS, THERA 1 EACH TAB PO SCH (15:44)
[2018-01-09 16:40] VITALS: RESP 18
[2018-01-09] MEDS: MAG HYDROX/AL HYDROX/SIMETH 30 ML CUP PO SCH ×3 (17:37→21:46)
[2018-01-09] MEDS: DOXAZOSIN 4 MG TAB PO SCH (21:26)
[2018-01-09] MEDS: MIRTAZAPINE 15 MG TAB PO SCH (21:26)
[2018-01-09] MEDS: ATORVASTATIN 10 MG TAB PO SCH (21:26)
[2018-01-10 06:35] LABS: HCT 23.6 % (39.0-53.0); HGB 7.7 gm/dL (13.0-17.5); MCH 28.7 pg (25.0-35.0); MCHC 32.8 g/dL (31.0-37.0); MCV 87.5 fL (80.0-100.0); Mean Platelet Volume 7.3; Platelet Count 203 k/uL (150-450); RBC 2.69 m/uL (4.30-5.90); RDW 15.3 % (11.5-15.5); WBC 6.5 k/uL (3.8-10.6)
[2018-01-10] MEDS: LISINOPRIL 20 MG TAB PO SCH (08:26)
[2018-01-10] MEDS: amLODIPine 5 MG TAB PO SCH (08:26)
[2018-01-10] MEDS: MULTIVITAMINS, THERA 1 EACH TAB PO SCH (08:27)
[2018-01-10] MEDS: MAGNESIUM OXIDE 400 MG TAB PO SCH (08:27)
[2018-01-10] MEDS: PANTOPRAZOLE 40 MG/10 ML VIAL IVP SCH (08:27)
[2018-01-10] MEDS: MAG HYDROX/AL HYDROX/SIMETH 30 ML CUP PO SCH (08:27)
[2018-01-10] MEDS: SODIUM CHLORIDE 0.9% 1,000 ML IV SCH (08:27)
--- NOTE | 2018-01-10 09:39 | P.DS ---
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 The patient has underlying mild dementia. He had an episode of hematemesis with a blood clot and 60 systolic blood. Hemoglobin has dropped substantially from previous record it. In view of this his problems are hospital admitted. His dehydrated with the BUN high. He was hydrated, did not require blood transfusion hemoglobin stable at 7.7. He did have an EGD which revealed severe reflux esophagitis with ulcerations. The patient in view of this has been placed on Protonix 40 mg twice a day. This will be continued for 3 weeks and then we'll decrease it to once a day. Patient also recommended to follow anti-reflux measures. Patient's not capable of understanding that. But the patient should not be fed for at least couple of hours before he goes to bed. Patient when laying in bed have the head of bed elevated at 30 at all times My final diagnosis 1. Acute upper GI bleeding 2. Esophageal reflux esophagitis and ulcerations 3. Anemia secondary to acute blood loss 4. Right hemiplegia 5. Mild dementia 6. Hypertension 7. BPH. Patient Condition at Discharge: Stable Plan - Discharge Summary New Discharge Prescriptions: New RX: Na Phos,M-B/Na Phos,Di-Ba [Fleet Adult] 133 ml RECTAL ONCE PRN enema PRN Reason: Constipation Pantoprazole [Protonix] 40 mg PO AC-BID #60 tablet. Continue RX: Enalapril [Vasotec] 20 mg PO DAILY RX: Doxazosin Mesylate [Cardura] 4 mg PO HS RX: Multivit-Min/FA/Lycopen/Lutein [Centrum Silver Men Tablet] 1 tab PO DAILY RX: Magnesium Oxide [Mag-Ox] 250 mg PO DAILY RX: Atorvastatin [Lipitor] 10 mg PO HS tab RX: Bisacodyl [Dulcolax] 10 mg RECTAL DAILY PRN PRN Reason: Constipation RX: Mag Hydrox/Al Hydrox/Simeth [Maalox] 30 ml PO TID RX: Lactose-Reduced Food [Ensure Plus] 1 can PO TID RX: amLODIPine [Norvasc] 5 mg PO BID RX: Methylphenidate HCl [Ritalin] 10 mg PO QAM RX: Tamsulosin HCl [Flomax] 0.4 mg PO HS RX: Mirtazapine [Remeron] 15 mg PO HS RX: Magnesium Hydroxide [Milk of Magnesia] 2,400 mg PO DAILY PRN PRN Reason: Constipation Discontinued RX: Aspirin 325 mg PO DAILY tab Na Phos,M-B/Na Phos,Di-Ba [Fleet Adult] 133 ml RECTAL ONCE PRN PRN Reason: Constipation RX: Pantoprazole [Protonix] 40 mg PO HS Discharge Medication List RX: Doxazosin Mesylate [Cardura] 4 mg PO HS 03/16/14 [History] RX: Enalapril [Vasotec] 20 mg PO DAILY 03/16/14 [History] RX: Magnesium Oxide [Mag-Ox] 250 mg PO DAILY 10/12/17 [History] RX: Multivit-Min/FA/Lycopen/Lutein [Centrum Silver Men Tablet] 1 tab PO DAILY [History] RX: Atorvastatin [Lipitor] 10 mg PO HS tab 10/17/17 [Rx] RX: Bisacodyl [Dulcolax] 10 mg RECTAL DAILY PRN 01/08/18 [History] RX: Lactose-Reduced Food [Ensure Plus] 1 can PO TID 01/08/18 [History] RX: Mag Hydrox/Al Hydrox/Simeth [Maalox] 30 ml PO TID 01/08/18 [History] RX: Magnesium Hydroxide [Milk of Magnesia] 2,400 mg PO DAILY PRN 01/08/18 [ History] RX: Methylphenidate HCl [Ritalin] 10 mg PO QAM 01/08/18 [History] RX: Mirtazapine [Remeron] 15 mg PO HS 01/08/18 [History] RX: Tamsulosin HCl [Flomax] 0.4 mg PO HS 01/08/18 [History] RX: amLODIPine [Norvasc] 5 mg PO BID 01/08/18 [History] Pantoprazole [Protonix] 40 mg PO AC-BID #60 tablet. 01/10/18 [Rx] RX: Na Phos,M-B/Na Phos,Di-Ba [Fleet Adult] 133 ml RECTAL ONCE PRN enema [Rx] Discharge Disposition: TRANSFER TO SNF/ECF
[2018-01-10 11:49] VITALS: BP 99/56; PULSE 86; TEMP 98.5
--- NOTE | 2018-01-10 15:52 | PN ---
PROGRESS NOTE DATE OF SERVICE: 01/10/2018 Patient is an 87-year-old white male admitted to hospital with acute upper GI bleed. 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 He is on Protonix 40 mg twice daily. He denies any symptoms today, on a solid diet, tolerating well. PHYSICAL EXAMINATION: On physical examination, he appears comfortable, in no apparent distress. Vital signs are stable. Blood pressure 109/67, pulse rate 96, temperature 98.7. HEENT Examination: Unremarkable. Conjunctivae pink. Sclerae anicteric. Oral cavity, no lesions. NECK: No JVD or lymph node enlargement. Chest was clear to auscultation. HEART: Regular rate and rhythm. ABDOMEN: Soft. Bowel sounds are positive. No organomegaly. EXTREMITIES: No pedal edema. SKIN: No rashes. NEURO: Alert and oriented x3. No focal deficits. LABS: WBC 6.5, hemoglobin 7.7, platelets 203. IMPRESSION: 1. Acute upper gastrointestinal bleed secondary to severe grade 4 reflux esophagitis noted on upper endoscopy yesterday. The patient clinically doing well. No further episodes of bleeding. On Protonix 40 mg twice daily, doing well. 2. Mild dementia. RECOMMENDATIONS: 1. Continue with Protonix 40 mg twice daily. 2. Anti-reflux measures. 3. He can be discharged home today. Follow up as needed. Thank you for this consultation. MMCHRISTOPHER / [place]LYN: [id number] /
== END 2018-01-10 14:21 | DRG 381 ==
LOC: EC 18:39 → 6SEL 21:01
PROVIDERS: ADMIT Internal Medicine; ATTEND Internal Medicine
PROC: 0DB58ZX Excision of Esophagus, Via Natural or Artificial Opening Endoscopic, Diagnostic (ICD-10-PCS; principal; 2018-01-09 09:00)
DX: K22.11 Ulcer of esophagus with bleeding (principal); D62 Acute posthemorrhagic anemia; G81.91 Hemiplegia, unspecified affecting right dominant side; K21.0 Gastro-esophageal reflux disease with esophagitis; K44.9 Diaphragmatic hernia without obstruction or gangrene; Z87.891 Personal history of nicotine dependence; E78.5 Hyperlipidemia, unspecified; F03.90 Unspecified dementia, unspecified severity, without behavioral disturbance, psychotic disturbance, mood disturbance, and anxiety; I10 Essential (primary) hypertension; K31.7 Polyp of stomach and duodenum; K57.30 Diverticulosis of large intestine without perforation or abscess without bleeding; N40.0 Benign prostatic hyperplasia without lower urinary tract symptoms; Z79.82 Long term (current) use of aspirin; Z79.899 Other long term (current) drug therapy; Z80.0 Family history of malignant neoplasm of digestive organs; Z80.1 Family history of malignant neoplasm of trachea, bronchus and lung; Z80.8 Family history of malignant neoplasm of other organs or systems; Z82.49 Family history of ischemic heart disease and other diseases of the circulatory system; Z83.3 Family history of diabetes mellitus; Z86.73 Personal history of transient ischemic attack (TIA), and cerebral infarction without residual deficits; Z87.11 Personal history of peptic ulcer disease; E04.1 Nontoxic single thyroid nodule; R74.8 Abnormal levels of other serum enzymes; R50.9 Fever, unspecified; Z84.1 Family history of disorders of kidney and ureter
CPT/HCPCS: 36415; 43239; 80048; 80053; 81003; 82272; 83605; 84484; 85025; 85027; 85610; 85730; 86850; 86900; 86901; 86920; 87040; 87086; 88305; 88312; 93005; 96374; 99285